=== PATIENT | female | born 1970 | race Caucasian/White ===

== ENCOUNTER 2020-08-11 10:39 | Inpatient (IN) | payer BC, SELFPAY ==
[2020-08-11] VITALS (39 sets, daily range): BP systolic 136–185; BP diastolic 65–105; PULSE 80–105; RESP 16–27; TEMP 36–36.9; O2SAT 95–100; BMI 29.5
--- NOTE | ~2020-08-11 | CT_ITS ---
EXAMINATION: CT abdomen pelvis wo con DATE: 08/11/2020 11:36 INDICATION: Right flank pain TECHNIQUE: Computed tomography (CT) of the abdomen and pelvis was performed without intravenous contr ast. Automated exposure control and iterative reconstruction technique were employed. The dose-length product was 477.92 mGy-cm. COMPARISON: None FINDINGS: There are numerous thin-walled cystic spaces throughout the visualized lower lungs. Heart size is nor mal. No pericardial or pleural effusion. There are numerous small macroscopic fat attenuation nodule scattered throughout the liver the largest measuring up to 10 mm the caudate lobe consistent with hep atic angiomyolipomas. There are few calcified gallstones in the dependent fundus of the gallbladder w hich is dilated with wall thickening and prominent pericholecystic inflammatory stranding consistent with acute cholecystitis. The common bile duct is dilated to 9 mm with obstructing 8 x 6 x 8 mm galls tone at the ampulla. There is also mild intrahepatic biliary ductal dilation. Spleen, pancreas and bi lateral adrenal glands are normal. There are multiple bilateral renal cysts the largest on the left m easuring 3.8 cm in maximal diameter. There are also at least 7 nonobstructing renal stones in each of the left and right kidneys, the largest measuring up to 5 mm lower pole calyx of the right kidney. N o stones seen along the ureters or hydronephrosis. Moderate-sized fat-containing umbilical hernia. Joni wels including the appendix are normal. Bladder, uterus and bilateral adnexa are unremarkable. No jennifer e intraperitoneal gas or fluid. No pathologically enlarged mild thoracolumbar levocurvature. Severe d isc height loss at L5-S1. Otherwise mild thoracolumbar spondylosis. lymphadenopathy. IMPRESSION: 1. 8 mm obstructing gallstone at the distalmost common bile duct with mild intrahepatic and extra hep atic biliary ductal dilation as well as acute cholecystitis. Consider ERCP for stone extraction. 2. Bilateral nonobstructing nephrolithiasis. 3. 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 Reviewed, dictated and finalized at location A. LEAD IMPRESSION: 1. 8 mm obstructing gallstone at the distalmost common bile duct with mild intr ahepatic and extra hepatic biliary ductal dilation as well as acute cholecystit is. Consider ERCP for stone extraction. 2. Bilateral nonobstructing nephrolithiasis. 3. Multiple lung and hepatic lesions most consistent with pulmonary lymphangiom yomatosis and hepatic angiomyolipomatosis the combination of which strongly sug gests association with tuberous sclerosis complex.
--- NOTE | ~2020-08-11 | XR_ITS ---
EXAMINATION: XR ERCP DATE: 08/12/2020 12:18 INDICATION: Choledocholithiasis TECHNIQUE: Three intraoperative fluoroscopic images obtained during endoscopic retrograde cholangiopa ncreatography (ERCP) are submitted for review. Total fluoroscopic time was 49.0 seconds. COMPARISON: None. FINDINGS: The common bile duct is dilated. Final fluoroscopic image demonstrates sweeping of the duct . IMPRESSION: 1. Dilated common bile duct. Please refer to the ERCP procedure note for additional details. Reviewed, dictated and finalized at location A. ER HELPER IMPRESSION: 1. Dilated common bile duct. Please refer to the ERCP procedure note for additi onal details.
--- NOTE | 2020-08-11 11:17 | ED.ABDPAIN ---
HPI - Abdominal Pain General Chief Complaint: Abdominal Pain Stated Complaint: ABD Pain, Nausea, Sent by PCP Time Seen by Provider: 08/11/20 10:55 Source: patient History of Present Illness HPI narrative: 50-year-old female presents to emergency department for umbilical abdominal pain that radiates to her right flank that she noticed last night. Patient states she has had this in the past before, unknown cause. She has not taken anything for the pain far. Nothing makes the pain worse or better. Reports some nausea, no vomiting. Last bowel movement was about 2 days ago. No urinary symptoms. No vaginal bleeding or discharge. No fever or chills. No chest pain or shortness of breath. Related Data Home Medications Medication Instructions Recorded Confirmed L.acidophil-L.plantar-Bifido 7 1 cap PO DAILY 08/11/20 08/11/20 [up4 Probiotics Adult] albuterol 90 mcg INHALATION Q6H PRN 08/11/20 08/11/20 amitriptyline 50 mg PO HS 08/11/20 08/11/20 calcium carbonate-vitamin D3 [All 1 tablet PO DAILY 08/11/20 08/11/20 Day Calcium] cholecalciferol (vitamin D3) 25 mcg PO DAILY 08/11/20 08/11/20 [Vitamin D3] cyanocobalamin (vitamin B-12) 2,500 mcg SUBLINGUAL DAILY 08/11/20 08/11/20 [Vitamin B-12] fluticasone propionate [Flonase] 1 spray INTRANASAL BID 08/11/20 08/11/20 labetalol 200 mg PO Q12H 08/11/20 08/11/20 multivit with min-folic acid 1 tablet PO DAILY 08/11/20 08/11/20 [Adult One Daily Multivitamin] omeprazole [Prilosec] 20 mg PO HS 08/11/20 08/11/20 salmeterol [Serevent] 50 mcg INHALATION BID 08/11/20 08/11/20 topiramate [Topamax] 50 mg PO QAM 08/11/20 08/11/20 topiramate [Topamax] 100 mg PO HS 08/11/20 08/11/20 verapamil 180 mg PO DAILY 08/11/20 08/11/20 Allergies Allergy/AdvReac Type Severity Reaction Status Date / Time iodine Allergy Unknown Swelling Verified 08/11/20 16:23 of Lip/Tongue/Throat Review of Systems Review of Systems: Narrative: CONSTITUTIONAL: Denies fever, chills, or sweats. EYES: Denies visual changes, redness, or discharge. ENT: Denies rhinorrhea, congestion, sore throat, or otalgia. CARDIOVASCULAR: Denies chest pain, palpitations, or edema. RESPIRATORY: Denies cough or dyspnea. GASTROINTESTINAL: Reports umbilical pain that radiates to right flank, also reports nausea GENITOURINARY: Denies dysuria or hematuria. SKIN: Denies rash or itching. MUSCULOSKELETAL: Denies back pain, joint pain, or myalgia. NEUROLOGIC: Denies headache, numbness, dizziness, or weakness. PSYCHIATRIC: Denies anxiety or depression. All systems reviewed & are unremarkable except as noted in HPI and below (ROS) PMFSH Past Medical History Medical History (Updated 08/11/20 @ 19:19 by Luan Barnes MD) Umbilical hernia without obstruction or gangrene Family History Family History Father Hypertension Mother Hypertension Sibling Family history of attention deficit hyperactivity disorder (ADHD) Social History Social History Smoking status: Never smoker Second hand tobacco smoke exposure: No Alcohol intake: never Substance use: never Substance use type: does not use Spiritual care concerns: No Exam Narrative: Exam Narrative: GENERAL: Well-appearing, well-nourished, and in no acute distress. HEAD: Normocephalic, atraumatic. EYES: PERRLA and EOMI. ENT: Nares clear, no rhinorrhea or epistaxis. Mucous membranes moist. NECK: Supple. CHEST: Clear to auscultation. No respiratory distress. HEART: Regular rate and rhythm. No murmur heard. Normal peripheral pulses. ABDOMEN: Right-sided abdominal TTP, and right flank TTP EXTREMITIES: Normal range of motion. No edema. SKIN: Warm, dry, no rash. NEURO: No focal deficits. Alert and oriented x3. PSYCH: Normal mood and affect. Course Consultations Consultation #1: [id number] - discussed case with Dr. Dailey, accepts admission 12:15PM d
[2020-08-11 11:29] LABS: Basophils Absolute Auto 0.1 K/mm3 (0.0-0.1); Basophils Percent Auto 0.3 % (0.2-1.2); Eosinophils Absolute Auto 0.1 K/mm3 (0-0.3); Eosinophils Percent Auto 0.5 % (0-4.4); Hematocrit 40.1 % (37.0-47.0); Hemoglobin 12.9 g/dL (12.0-15.0); Immature Granulocyte Absolute 0.05 K/mm3 (0.00-0.031); Immature Granulocyte Percent A 0.3 % (0-0.5); Lymphocytes Absolute Auto 1.13 K/mm3 (0.9-3.2); Lymphocytes Percent Auto 7.7 % (18.3-44.2); Mean Corpuscular HGB Conc 32.2 g/dl (32-36); Mean Corpuscular Hemoglobin 26.8 pg (26-34); Mean Corpuscular Volume 83.2 fl (80-100); Mean Platelet Volume 10.2 fl (7.4-10.4); Monocytes Absolute Auto 0.9 K/mm3 (0.1-0.6); Neutrophils Absolute Auto 12.4 K/mm3 (1.3-6.7); Neutrophils Percent Auto 85.2 % (45.5-73.1); Platelet Count Result 412 k/mm3 (150-375); Red Blood Count 4.82 M/mm3 (4.2-5.4); Red Cell Distribution Width 18.8 % (11.5-14.5); White Blood Count 14.6 K/mm3 (4.5-10.0)
[2020-08-11] MEDS: ONDANSETRON INJ 4 MG/2 ML VIAL IV PUSH ×3 (11:40→21:44)
[2020-08-11] MEDS: fentaNYL CITRATE INJ (*CRX) 100 MCG/2 ML VIAL 25 MCG IV PUSH (11:40)
[2020-08-11] MEDS: SODIUM CHLORIDE 0.9% IV 1,000 ML 999 ML IV CONT (11:41)
[2020-08-11 11:42] LABS: Ammonia < 9 umol/L (9-30)
[2020-08-11 11:43] LABS: Alanine Aminotransferase 562 U/L (4-35); Albumin Level 4.1 g/dL (3.5-5.1); Alkaline Phosphatase 501 U/L (38-126); Anion Gap 12 mmol/L (8-16); Aspartate Amino Transferase 738 U/L (14-36); Bilirubin,Total 2.1 mg/dL (0.2-1.3); Blood Urea Nitrogen 20 mg/dL (7-17); Calcium 9.7 mg/dL (8.4-10.2); Carbon Dioxide 25 mmol/L (22-30); Chloride 102 mmol/L (98-107); Estimated CRCL calculation 56 ml/min; Estimated Glomerular Filt Rate 52; Glucose 121 mg/dL (65-105); Lipase 38 U/L (23-300); Potassium 4.1 mmol/L (3.4-5.0); Sodium 139 mmol/L (137-145)
[2020-08-11] MEDS: MORPHINE SULFATE (*CRX) 2 MG/ML INJ IV PUSH (12:14)
[2020-08-11 12:35] LABS: INR 0.9; Prothrombin Time 12.3 Seconds (11.1-14.7)
[2020-08-11] MEDS: AMPICILLIN SULB 3 GM/NS 100 ML 3 GM/100 ML VIAL IVPB (12:43)
--- NOTE | 2020-08-11 15:37 | PM.CNGS ---
Assessment and Plan Assessment and plan (1) Gallstone of bile duct with obstruction: Qualifiers: Cholecystitis acuity: acute Cholecystitis presence: with cholecystitis Qualified Code(s): K80.43 - Calculus of bile duct with acute cholecystitis with obstruction Code(s): K80.51 - Calculus of bile duct without cholangitis or cholecystitis with obstruction Status: Acute Assessment and Plan: Will await plan from GI. Probably patient will have ERCP 1st then consider laparoscopic cholecystectomy later. (2) Acute cholecystitis: Code(s): K81.0 - Acute cholecystitis Status: Acute Assessment and Plan: I agree with starting the patient on antibiotics. Will discuss with her the risks, benefits, and possible complications of a laparoscopic cholecystectomy with intraoperative cholangiogram and possible open cholecystectomy in order to remove the source of the gallstones leading to her common duct obstruction. (3) Umbilical hernia without obstruction or gangrene: Code(s): K42.9 - Umbilical hernia without obstruction or gangrene Status: Acute Assessment and Plan: This seems to be reducible. It is nontender for the patient. If we proceed to laparoscopic cholecystectomy will try to make 1 of the incisions here and repair the hernia as we finished. Patient is appreciative of this. History of Present Illness Consult details Consult date: 08/11/20 Reason for consult: gallstones (With cholecystitis and probable choledocholithiasis by CT.) Requesting physician: Joey Dailey MD Narrative: This is a 50-year-old white female who presented to the [place] emergency department today for umbilical abdominal pain that radiates to her right flank that she first noticed last night. Patient states she has had this in the past before, but did not know the cause. Nothing makes the pain worse or better. Reports some nausea, no vomiting. Last bowel movement was about 2 days ago. No urinary symptoms. No vaginal bleeding or discharge. No fever or chills. No chest pain or shortness of breath. Patient states that in June of this year labs done because she is on immune suppressive medication for her Tubersclerous showed that her liver enzymes were up. Therefore that medication was stopped. She was told to go to her PCP for further workup. The past she has not known that she had had gallstones but her PCP told her to come to the emergency room today after a visit in the office in the morning. This apparently from the patient's perspective was because she felt my liver and I did not feel right . Work-up in the emergency room subsequently showed slightly elevated white count along with a CT scan showing both cholelithiasis and choledocholithiasis. All 4 liver function tests were somewhat elevated including a bilirubin of 2.1. Patient is admitted now and GI has been consulted to consider ERCP. Review of Systems Constitutional: Constitutional: Reports as per HPI and Denies headache(s) Eyes: Eyes: Denies loss of vision and Denies eye pain ENT: Reports Normal hearing present, Denies change in voice, Denies dizziness and Denies headache(s) Cardiovascular: Cardiovascular: Denies chest pain and Denies dyspnea Respiratory: Respiratory: Denies dyspnea and Denies wheezing Comments: Patient states she sees a real estate management specialist because of her cystic disease in her lungs.(Tubersclerosis) Gastrointestinal: Gastrointestinal: Reports abdominal pain Musculoskeletal: Musculoskeletal: Denies back pain and Denies arthralgias Neurologic: Reports Normal hearing present, Denies dizziness, Denies headache(s), Denies loss of vision and Denies memory loss Psychiatric: Psychiatric: Denies memory loss and Denies panic attacks Endocrine: Endocrine: Reports no additional endocrine complaints Hematologic/Lymphatic: Hematologic/Lymphatic: Reports no additional hematologic/lymphatic complaints Allergic/Immunologi
--- NOTE | 2020-08-11 16:03 | ADMGEN ---
This patient, Jessa Alves, was admitted to [address] [facility] Surg Room 300-01 on 08/11/2020 @ 1550. Patient/family oriented to hospital policies and general routines including ID bracelet, bed and alarms, visiting hours, pain management, procedures, bathroom and other care routines, personal items, smoking policy, room service/diet, and visiting hours. Information on how to activate the Rapid Response Team has been discussed. Patient/Family are encouraged to report perceived risks to care and to ask questions if they do not understand what they are told or what they should do.
[2020-08-11] MEDS: MORPHINE SULFATE (*CRX) 4 MG/ML INJ 2 MG IV PUSH ×3 (16:19→23:47)
[2020-08-11] MEDS: HYDROmorphone HCL INJ (*CRX) 1 MG/ML SYR 0.5 MG IV PUSH (18:25)
--- NOTE | 2020-08-11 20:30 | PM.IMHP ---
H&P: HPI History of Present Illness Date/Time: 08/11/20 20:30 Chief complaint: Abdominal pain. Narrative: Jessa Alves is a pleasant 50-year-old female with hypertension, hyperlipidemia, chronic kidney disease stage 3, and tuberous sclerosis who presented to the emergency department earlier today via private vehicle for evaluation of abdominal pain. Over the past 1 month or so she has had intermittent pain, mainly in the right upper quadrant, which she describes as a squeezing or cramping sensation with occasional bloating. Her appetite has also been poor and she has been experiencing nausea, typically eating just cereal most days as she can tolerate that without issue. In fact she has lost approximately 20 lb in a little over a month due to the symptoms. She has continued to attribute her pain to ?liver pain? due to her underlying tuberous sclerosis. Interestingly she reports that her liver enzymes were elevated a little over a month ago on routine labs, and her immunosuppressants were stopped at that time. In any event, she sees no pattern as to when this pain occurs but does seem to be worse at nighttime. She denies that is related to food. She has been told not to take Tylenol or NSAIDs and thus she has just been trying to manage with the pain. At this time she rates her pain 9/10, and states it is in the right upper quadrant with some radiation through to the back. She denies fever, chills, sweats, jaundice, pruritus, chest pain, shortness of breath, and vomiting. No known history of gallbladder disease, pancreatitis, or peptic ulcers. Review of Systems Review of Systems: Narrative: Twelve systems were reviewed with pertinent positives and negatives as per HPI. No fever, chills, or sweats. No recent cold or flu-like symptoms. She denies exposure to those positive for COVID-19. No recent travel or sick contacts. Last bowel movement was about 2 days ago, and she reports that it was a bit computer processing scheduler in color with possible mucus. No blood in the stools. Except as documented, all other systems were reviewed and are negative. [facility] Past Medical History Medical History (Updated 08/11/20 @ 23:13 by Ilsa Mccarty PA-C) Chronic kidney disease, stage 3 Endometriosis Hyperlipidemia Hypertension Reflux esophagitis Tuberous sclerosis Umbilical hernia without obstruction or gangrene Surgical History Surgical History (Updated 08/11/20 @ 23:09 by Ilsa Mccarty PA-C) History of section History of laparoscopy History of partial nephrectomy Left partial nephrectomy related to a gross secondary to tuberous sclerosis. History of right salpingo-oophorectomy With adhesiolysis and destruction of endometriosis. History of tonsillectomy Family History Family History (Updated 08/11/20 @ 23:09 by Ilsa Mccarty PA-C) Father Hypertension Mother Hypertension Sibling Family history of attention deficit hyperactivity disorder (ADHD) Son Tuberous sclerosis Social History Social History (Updated 08/11/20 @ 23:10 by Ilsa Mccarty PA-C) Social History: Surrogate decision maker: Pia Blue Code status: Full code. Smoking status: Never smoker Second hand tobacco smoke exposure: No Alcohol intake: never Substance use: never Substance use type: does not use Additional living arrangements comments: Resides in [place] with her 17-year-old twins. Additional occupation/education comments: She works from home, for the [employer] in [place]. Spiritual care concerns: No Meds Home Medications and Allergies Home Medications Medication Instructions Recorded Confirmed Type L.acidophil-L.plantar-Bifido 7 1 cap PO DAILY 08/11/20 08/11/20 History [up4 Probiotics Adult] albuterol 90 mcg INHALATION Q6H PRN 08/11/20 08/11/20 History amitriptyline 50 mg PO HS 08/11/20 08/11/20 History calcium carbonate-vitamin D3 [All 1 tablet PO DAILY 08/11/20 08/11/20 History Day Calcium]
[2020-08-11] MEDS: SODIUM CHLORIDE 0.9% IV 1,000 ML 100 ML IV CONT (23:37)
[2020-08-12] VITALS (17 sets, daily range): BP systolic 96–145; BP diastolic 53–77; PULSE 78–106; RESP 13–20; TEMP 36.7–37.1; O2SAT 93–100
[2020-08-12] MEDS: LABETALOL HCL 100 MG TABLET 200 MG PO ×3 (00:54→20:45)
[2020-08-12] MEDS: AMITRIPTYLINE HCL 25 MG TABLET 50 MG PO ×2 (00:56→20:50)
[2020-08-12] MEDS: PANTOPRAZOLE 40 MG TABLET PO ×2 (00:57→20:45)
[2020-08-12] MEDS: TOPIRAMATE 100 MG TABLET PO ×2 (00:57→20:47)
[2020-08-12 06:28] LABS: Basophils Absolute Auto 0.1 K/mm3 (0.0-0.1); Basophils Percent Auto 0.3 % (0.2-1.2); Eosinophils Absolute Auto 0.1 K/mm3 (0-0.3); Eosinophils Percent Auto 0.6 % (0-4.4); Hematocrit 40.3 % (37.0-47.0); Hemoglobin 12.8 g/dL (12.0-15.0); Immature Granulocyte Absolute 0.11 K/mm3 (0.00-0.031); Immature Granulocyte Percent A 0.6 % (0-0.5); Lymphocytes Absolute Auto 1.08 K/mm3 (0.9-3.2); Lymphocytes Percent Auto 5.6 % (18.3-44.2); Mean Corpuscular HGB Conc 31.8 g/dl (32-36); Mean Corpuscular Hemoglobin 26.8 pg (26-34); Mean Corpuscular Volume 84.3 fl (80-100); Mean Platelet Volume 10.3 fl (7.4-10.4); Monocytes Absolute Auto 1.5 K/mm3 (0.1-0.6); Monocytes Percent Auto 7.9 % (2.6-8.5); Neutrophils Absolute Auto 16.4 K/mm3 (1.3-6.7); Platelet Count Result 436 k/mm3 (150-375); Red Blood Count 4.78 M/mm3 (4.2-5.4); White Blood Count 19.3 K/mm3 (4.5-10.0)
[2020-08-12] MEDS: MORPHINE SULFATE (*CRX) 4 MG/ML INJ 2 MG IV PUSH (06:30)
[2020-08-12] MEDS: ONDANSETRON INJ 4 MG/2 ML VIAL IV PUSH (06:30)
[2020-08-12 06:48] LABS: Alanine Aminotransferase 505 U/L (4-35); Albumin Level 3.6 g/dL (3.5-5.1); Alkaline Phosphatase 548 U/L (38-126); Anion Gap 11 mmol/L (8-16); Aspartate Amino Transferase 382 U/L (14-36); Bilirubin,Total 3.6 mg/dL (0.2-1.3); Blood Urea Nitrogen 13 mg/dL (7-17); Calcium 9.5 mg/dL (8.4-10.2); Carbon Dioxide 23 mmol/L (22-30); Chloride 105 mmol/L (98-107); Estimated CRCL calculation 51 ml/min; Estimated Glomerular Filt Rate 47; Glucose 108 mg/dL (65-105); Lipase 48 U/L (23-300); Sodium 139 mmol/L (137-145)
[2020-08-12] MEDS: FLUTICASONE PROPIONATE 0.05% NA SPR 16 GM BTL (*BKC) 1 SPRAY NASAL ×2 (08:41→16:43)
[2020-08-12] MEDS: LACTATED RINGERS 1,000 ML 150 ML IV CONT (08:45)
[2020-08-12] MEDS: VERAPAMIL HCL 180 MG TABLET ER PO (08:54)
--- NOTE | 2020-08-12 09:03 | PM.PNGS ---
Progress Note: A&P Assessment and Plan (1) Acute cholecystitis: Onset Date: ~08/2020 Code(s): K81.0 - Acute cholecystitis Status: Acute Assessment and Plan: I have discussed with the patient possible laparoscopic cholecystectomy with intraoperative cholangiogram, possible open cholecystectomy. She has been provided with the patient information sheet regarding this procedure. If her ERCP a successful today we will think about proceeding with the procedure for removal of the gallbladder either tomorrow or Monday. Repeat labs will be checked tomorrow morning and the patient could have clear liquids from the surgical point of view between the end of her ERCP and midnight tonight if she is feeling well. I think it is important to consider removal of the gallbladder to remove the source of the stones which have caused her other problem. (2) Gallstone of bile duct with obstruction: Onset Date: Unknown Qualifiers: Cholecystitis acuity: acute Cholecystitis presence: with cholecystitis Qualified Code(s): K80.43 - Calculus of bile duct with acute cholecystitis with obstruction Code(s): K80.51 - Calculus of bile duct without cholangitis or cholecystitis with obstruction Status: Acute Assessment and Plan: We suspected this is a recent occurrence. However she may have had a stone out in the bile duct for as long as a month without causing obstruction since her liver function tests were somewhat elevated back in June. She is planning to proceed with ERCP later today. We will await the results of that test. (3) Umbilical hernia without obstruction or gangrene: Onset Date: Unknown Code(s): K42.9 - Umbilical hernia without obstruction or gangrene Status: Acute Assessment and Plan: Will plan to repair this umbilical hernia on the way out from completing her laparoscopic cholecystectomy. (4) Bilateral nephrolithiasis: Code(s): N20.0 - Calculus of kidney Status: Acute Additional Plan Repeat labs tomorrow morning following her ERCP today. Will try to tentatively schedule patient for laparoscopic scopic cholecystectomy for either 02/2020 or 03/2020. Subjective Subjective Date/Time Seen: 08/12/20 08:03 Patient lying in bed when I entered the room. She is alert and awake and not complain of any specific pain right now. She states she recently received some pain medicine from the nurse. She took some pain medicine periodic Whitney overnight but was able to sleep on off. Her pain is mainly central abdominal radiating to the right back. I explained to her that her bilirubin was elevated further today and that I believe the right thing to do is to proceed with ERCP which she states is scheduled for around 11:00 a.m. today. Review of Systems Constitutional: Constitutional: Reports no additional constitutional complaints ENT: Reports other (Mucous Membranes moist.) Cardiovascular: Cardiovascular: Denies dyspnea Respiratory: Respiratory: Denies pain on inspiration and Denies dyspnea Gastrointestinal: Gastrointestinal: Reports abdominal pain ( Mainly right upper quadrant and mid abdomen), Denies heartburn, Denies diarrhea and Reports nausea ( occasional) Comments: Patient has had an umbilical hernia it has been enlarging slowly over the last 2 years. Genitourinary: Comments: history of 2002 History of laparoscopy for endometriosis and removal of 1 ovary 2012. (May have had an incision by the umbilicus at this time). Musculoskeletal: Musculoskeletal: Reports other (No calf swelling or edema) Integumentary/Breasts: Skin/Breast: Reports system reviewed and no additional complaints, except as docu Exam Const: General: cooperative, no acute distress, alert and awake Orientation/consciousness: patient oriented x3 HENMT: Mouth: Yes moist mucous membranes Neck: Neck: normal visual inspection Chest: [place]
--- NOTE | 2020-08-12 09:12 | WPDGICN ---
Assessment and Plan Assessment and plan (1) Obstructive jaundice: Code(s): K83.1 - Obstruction of bile duct Status: Acute (2) Acute cholecystitis: Code(s): K81.0 - Acute cholecystitis Status: Acute (3) Gallstone of bile duct with obstruction: Qualifiers: Cholecystitis acuity: acute Cholecystitis presence: with cholecystitis Qualified Code(s): K80.43 - Calculus of bile duct with acute cholecystitis with obstruction Code(s): K80.51 - Calculus of bile duct without cholangitis or cholecystitis with obstruction Status: Acute Assessment and Plan: Patient has elevated LFTs and abnormal CT scan suggesting cholelithiasis, cholecystitis and choledocholithiasis. Plan is for broad-spectrum antibiotics which has already been started. Proceed with ERCP today. Surgery is following for anticipated cholecystectomy as well. GI Consult Note Consult date/time: 08/12/20 09:12 HPI: Jessa Alves is a 50 year old female Seen at the request of the hospitalist service. Patient in usual state of health until Monday evening when she began to have epigastric right upper quadrant pain she presented the emergency room yesterday was found to have elevated LFTs. CT scan suggest gallstones cholecystitis and choledocholithiasis. Patient states that in the past she has been on medications for tubular sclerosis. Elevated LFTs were identified several months ago and felt to be on this basis. She denies any prior history of gallstones. Her family history is noncontributory. Patient continues to complain of ongoing pain after discharge is improved with S pain medications however LFTs continue to be elevated. Review of Systems Review of Systems: All systems reviewed & are unremarkable except as noted in HPI and below PMFSH Past Medical History Medical History (Updated 08/11/20 @ 23:13 by Ilsa Mccarty PA-C) Chronic kidney disease, stage 3 Endometriosis Hyperlipidemia Hypertension Reflux esophagitis Tuberous sclerosis Umbilical hernia without obstruction or gangrene Surgical History Surgical History (Updated 08/11/20 @ 23:09 by Ilsa Mccarty PA-C) History of section History of laparoscopy History of partial nephrectomy Left partial nephrectomy related to a gross secondary to tuberous sclerosis. History of right salpingo-oophorectomy With adhesiolysis and destruction of endometriosis. History of tonsillectomy Family History Family History (Updated 08/11/20 @ 23:09 by Ilsa Mccarty PA-C) Father Hypertension Mother Hypertension Sibling Family history of attention deficit hyperactivity disorder (ADHD) Son Tuberous sclerosis Social History Social History (Updated 08/11/20 @ 23:10 by Ilsa Mccarty PA-C) Social History: Surrogate decision maker: Pia Blue Code status: Full code. Smoking status: Never smoker Second hand tobacco smoke exposure: No Alcohol intake: never Substance use: never Substance use type: does not use Additional living arrangements comments: Resides in [place] with her 17-year-old twins. Additional occupation/education comments: She works from home, for the [email or web address] in [place]. Spiritual care concerns: No Meds Home Medications and Allergies Home Medications Medication Instructions Recorded Confirmed Type L.acidophil-L.plantar-Bifido 7 1 cap PO DAILY 08/11/20 08/11/20 History [up4 Probiotics Adult] albuterol 90 mcg INHALATION Q6H PRN 08/11/20 08/11/20 History amitriptyline 50 mg PO HS 08/11/20 08/11/20 History calcium carbonate-vitamin D3 [All 1 tablet PO DAILY 08/11/20 08/11/20 History Day Calcium] cholecalciferol (vitamin D3) 25 mcg PO DAILY 08/11/20 08/11/20 History [Vitamin D3] cyanocobalamin (vitamin B-12) 2,500 mcg SUBLINGUAL DAILY 08/11/20 08/11/20 History [Vitamin B-12] fluticasone propionate [Flonase] 1 spray INTRANASAL BID 08/11/20 08/11/20 Hist
[2020-08-12] MEDS: SALMETEROL XINAFOATE 50 MCG DISKUS 1 PUFF INHALATION ×2 (09:43→20:01)
--- NOTE | 2020-08-12 10:15 | PC.NURSE ---
To GI Lab per w/c, IV locked. Report given to Mica Valencia
--- NOTE | 2020-08-12 10:30 | WPDANESEPPF ---
Anes - Initial Pre Proc Eval Procedure: Operation Date: 08/12/20 11:00 Proposed Procedures p Endoscopic Retro Cholangiopancreatogram - Otto Awad MD Date/Time: 08/12/20 10:30 Surgeon: TRACY Zimmerman Pre Op Diagnosis: Abdominal pain. Patient Data Age: 50 Gender: F Height: 5 ft 5 in Weight: 80.4 kg Last Vital Signs Temp 37.1 C 08/12/20 05:59 Pulse 100 08/12/20 08:55 Resp 18 08/12/20 05:59 BP 145/77 H 08/12/20 05:59 Pulse Ox 96 08/12/20 05:59 Allergies Allergy/AdvReac Type Severity Reaction Status Date / Time iodine Allergy Unknown Swelling Verified 08/12/20 10:30 of Lip/Tongue/Throat Home Medications Medication Instructions Recorded Confirmed Type L.acidophil-L.plantar-Bifido 7 1 cap PO DAILY 08/11/20 08/11/20 History [up4 Probiotics Adult] albuterol 90 mcg INHALATION Q6H PRN 08/11/20 08/11/20 History amitriptyline 50 mg PO HS 08/11/20 08/11/20 History calcium carbonate-vitamin D3 [All 1 tablet PO DAILY 08/11/20 08/11/20 History Day Calcium] cholecalciferol (vitamin D3) 25 mcg PO DAILY 08/11/20 08/11/20 History [Vitamin D3] cyanocobalamin (vitamin B-12) 2,500 mcg SUBLINGUAL DAILY 08/11/20 08/11/20 History [Vitamin B-12] fluticasone propionate [Flonase] 1 spray INTRANASAL BID 08/11/20 08/11/20 History labetalol 200 mg PO Q12H 08/11/20 08/11/20 History multivit with min-folic acid 1 tablet PO DAILY 08/11/20 08/11/20 History [Adult One Daily Multivitamin] omeprazole [Prilosec] 20 mg PO HS 08/11/20 08/11/20 History salmeterol [Serevent] 50 mcg INHALATION BID 08/11/20 08/11/20 History topiramate [Topamax] 50 mg PO QAM 08/11/20 08/11/20 History topiramate [Topamax] 100 mg PO HS 08/11/20 08/11/20 History verapamil 180 mg PO DAILY 08/11/20 08/11/20 History Laboratory Tests 08/11/20 08/11/20 08/11/20 11:23 11:23 11:23 WBC 14.6 K/mm3 H K/mm3 (4.5-10.0) RBC 4.82 M/mm3 M/mm3 (4.2-5.4) Hgb 12.9 g/dL g/dL (12.0-15.0) Hct 40.1 % % (37.0-47.0) MCV 83.2 fl fl (80-100) MCH 26.8 pg pg (26-34) MCHC 32.2 g/dl g/dl (32-36) RDW 18.8 % H % (11.5-14.5) Plt Count 412 k/mm3 H k/mm3 (150-375) MPV 10.2 fl fl (7.4-10.4) Immature Gran % (Auto) 0.3 % % (0-0.5) Neut % (Auto) 85.2 % H % (45.5-73.1) Lymph % (Auto) 7.7 % L % (18.3-44.2) Lewis % (Auto) 6.0 % % (2.6-8.5) Eos % (Auto) 0.5 % % (0-4.4) Baso % (Auto) 0.3 % % (0.2-1.2) Lymph # (Auto) 1.13 K/mm3 K/mm3 (0.9-3.2) Lewis # (Auto) 0.9 K/mm3 H K/mm3 (0.1-0.6) Eos # (Auto) 0.1 K/mm3 K/mm3 (0-0.3) Baso # (Auto) 0.1 K/mm3 K/mm3 (0.0-0.1) Abs Immat Gran (auto) 0.05 K/mm3 H K/mm3 (0.00-0.031) Absolute Neuts (auto) 12.4 K/mm3 H K/mm3 (1.3-6.7) Absolute Nucleated RBC 0.0 K/mm3 K/mm3 (0.0-0.012) Nucleated RBC % 0.0 % % (0.0-0.2) PT INR Sodium 139 mmol/L mmol/L (137-145) Potassium 4.1 mmol/L mmol/L (3.4-5.0) Chloride 102 mmol/L mmol/L (98-107) Carbon Dioxide 25 mmol/L mmol/L (22-30) Anion Gap 12 mmol/L mmol/L (8-16) BUN 20 mg/dL H mg/dL (7-17) Creatinine 1.10 mg/dL H mg/dL (0.7-1.0) Estim Creat Clear Calc 56 ml/min ml/min Estimated GFR 52 L (59 - ) Glucose 121 mg/dL H mg/dL (65-105) Calcium 9.7 mg/dL mg/dL (8.4-10.2) Magnesium Total Bilirubin 2.1 mg/dL H mg/dL (0.2-1.3) AST 738 U/L H U/L (14-36) ALT 562 U/L H U/L (4-35) Alkaline Phosphatase 501 U/L H U/L (38-126) Ammonia < 9 umol/L L umol/L (9-30) Total Protein 8.0 g/dL g/dL (6.3-8.2) Albumin 4.1 g/dL g/dL (3.5-5.1) Lipase 38 U/L U/L (23-300)
--- NOTE | 2020-08-12 13:30 | PC.NURSE ---
Returned from GI Lab. Report received from TONG.
--- NOTE | 2020-08-12 14:01 | PM.IMPN ---
Progress Note: A&P Assessment and Plan (1) Acute cholecystitis: Onset Date: ~08/2020 Code(s): K81.0 - Acute cholecystitis Status: Acute Assessment and Plan: Patient presents with abdominal pain, nausea; CT abdomen shows evidence consistent with cholecystitis with choledocholithiasis. ERCP with sphincterotomy and CBD stone extraction performed by Dr Awad this morning. General surgery also following - appreciate recommendations. Noted Dr Barnes's plan for lap priscilla in the next day or 2. Continue IV antibiotics and supportive care. Clear liquids until lap priscilla. (2) Gallstone of bile duct with obstruction: Onset Date: Unknown Qualifiers: Cholecystitis acuity: acute Cholecystitis presence: with cholecystitis Qualified Code(s): K80.43 - Calculus of bile duct with acute cholecystitis with obstruction Code(s): K80.51 - Calculus of bile duct without cholangitis or cholecystitis with obstruction Status: Acute Assessment and Plan: See above. Trend LFTs and bilirubin. (3) Umbilical hernia without obstruction or gangrene: Onset Date: Unknown Code(s): K42.9 - Umbilical hernia without obstruction or gangrene Status: Acute Assessment and Plan: Noted Dr Barnes's plan for repair during lap priscilla. No acute issues. (4) Chronic kidney disease, stage 3: Qualifiers: Chronic kidney disease stage 3 subtype: unspecified whether 3a or 3b Qualified Code(s): N18.30 - Chronic kidney disease, stage 3 unspecified Code(s): N18.30 - Chronic kidney disease, stage 3 unspecified Status: Chronic Assessment and Plan: Cr 1.2 today. Avoid nephrotoxic agents and monitor renal function. (5) Hypertension: Qualifiers: Hypertension type: essential hypertension Qualified Code(s): I10 - Essential (primary) hypertension Code(s): I10 - Essential (primary) hypertension Status: Chronic Assessment and Plan: Stable. Maintained on her home regimen with labetolol, verapamil. Monitor BP and adjust treatment as needed. 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 Subjective Date/time seen: 08/12/20 1345 Interval history: Ms. Alves is a 50yo F admitted for acute cholecystitis with gallstone obstruction. She is seen in follow up this afternoon after just returning from ERCP. She feels tired and has a sore throat from the scope otherwise offers no complaints. She denies abdominal pain at this time. She was very nauseous this morning prior to ERCP but she describes this has resolved. She denies chest pain or shortness of breath. Review of Systems Review of Systems: All systems reviewed & are unremarkable except as noted in HPI and below Exam Narrative: Exam Narrative: General: Female resting sitting up in bed in no acute distress. HEENT: Normocephalic, EOMI, oral mucosa tacky. Cardiovascular: Rate and rhythm are regular. Respiratory: Lungs clear to auscultation all garcia. Non-labored breathing. Abdomen: Soft, non-distended, bowel sounds present, mild RUQ tenderness to palpation without guarding. Extremities: Peripheral pulses intact. No edema. Neuro: No focal neurological deficits. Speech is clear. Objective Data Vital Signs Vital Signs: Last Vital Signs Temp 98.0 F 08/12/20 12:19 Pulse 85 08/12/20 13:19 Resp 19 08/12/20 13:19 BP 115/62 08/12/20 13:19 Pulse Ox 96 08/12/20 13:19 Intake/Output Intake/Output: Intake & Output 08/09/20
[2020-08-12] MEDS: THERAPEUTIC MULTIVITAMINS/MINERALS TAB (*BKC) 1 TABLET PO (14:15)
[2020-08-12] MEDS: CHOLECALCIFEROL 1,000 UNITS TABLET 1000 UNITS PO (14:15)
[2020-08-12] MEDS: CYANOCOBALAMIN 500 MCG TABLET 2500 MCG BY MOUTH (14:15)
[2020-08-12] MEDS: TOPIRAMATE 25 MG TABLET 50 MG PO (14:15)
[2020-08-12] MEDS: PHENOL/SOD PHENO SPRAY CHERRY (*BKC) 1 SPRAY MUCOUS MEM ×2 (16:43→20:50)
[2020-08-12] MEDS: SACCHAROMYCES BOULARDII 250 MG CAPSULE PO (16:43)
[2020-08-12 18:09] LABS: Add Urine Microscopic? YES; Appearance Urine Clear (Clear); Bacteria Urine Trace /hpf; Bilirubin Urine Negative (Negative); Blood Urine 1+ (Negative); Color Urine Amber (Yellow); Glucose Urine UA Negative (Negative); Ketones Urine Trace mg/dL (Negative); Leukocyte Esterase Ur 2+ LEU/UL (Negative); Mucus Urine Rare /lpf; Nitrate Urine Negative (Negative); Protein Urine 1+ mg/dL (Negative); Specific Grav Ur 1.014 (1.001-1.035); Squamous Epithelial Cell Urine Many /hpf (Few); WBC Urine 21-30 /hpf
[2020-08-13] VITALS (14 sets, daily range): BP systolic 104–146; BP diastolic 54–77; PULSE 76–92; RESP 10–20; TEMP 35.8–36.9; O2SAT 93–98
[2020-08-13 06:45] LABS: Basophils Percent Auto 0.1 % (0.2-1.2); Hematocrit 34.4 % (37.0-47.0); Hemoglobin 10.9 g/dL (12.0-15.0); Immature Granulocyte Absolute 0.06 K/mm3 (0.00-0.031); Immature Granulocyte Percent A 0.5 % (0-0.5); Lymphocytes Absolute Auto 1.27 K/mm3 (0.9-3.2); Lymphocytes Percent Auto 10.8 % (18.3-44.2); Mean Corpuscular HGB Conc 31.7 g/dl (32-36); Mean Corpuscular Volume 81.9 fl (80-100); Mean Platelet Volume 10.3 fl (7.4-10.4); Monocytes Absolute Auto 0.7 K/mm3 (0.1-0.6); Neutrophils Absolute Auto 9.7 K/mm3 (1.3-6.7); Neutrophils Percent Auto 82.6 % (45.5-73.1); Platelet Count Result 383 k/mm3 (150-375); Red Cell Distribution Width 18.9 % (11.5-14.5); White Blood Count 11.8 K/mm3 (4.5-10.0)
[2020-08-13 06:55] LABS: INR 1.1; Prothrombin Time 14.3 Seconds (11.1-14.7)
[2020-08-13 07:21] LABS: Alanine Aminotransferase 314 U/L (4-35); Albumin Level 3.1 g/dL (3.5-5.1); Alkaline Phosphatase 466 U/L (38-126); Anion Gap 8 mmol/L (8-16); Aspartate Amino Transferase 134 U/L (14-36); Bilirubin,Total 2.1 mg/dL (0.2-1.3); Blood Urea Nitrogen 18 mg/dL (7-17); Calcium 9.2 mg/dL (8.4-10.2); Carbon Dioxide 25 mmol/L (22-30); Chloride 106 mmol/L (98-107); Estimated CRCL calculation 56 ml/min; Estimated Glomerular Filt Rate 52; Glucose 101 mg/dL (65-105); Lipase 23 U/L (23-300); Magnesium 2.1 mg/dL (1.6-2.3); Potassium 3.5 mmol/L (3.4-5.0); Sodium 139 mmol/L (137-145)
--- NOTE | 2020-08-13 07:56 | WPDANESPN ---
Anes - Prog Note Post-Op Date/Time: 08/13/20 07:56 Cardiovascular status: normal Respiratory status: normal Airway patency: baseline Mental status: baseline Post-Op hydration status: normal Vital Signs: Last Vital Signs Temp 36.3 C L 08/13/20 06:00 Pulse 79 08/13/20 06:00 Resp 20 08/13/20 06:00 BP 146/74 H 08/13/20 06:00 Pulse Ox 98 08/13/20 06:00 Pain Score (VAS): 10/18 I/O: Intake & Output 08/12/20 08/12/20 08/13/20 15:59 23:59 07:59 Intake Total 150 120 0 Output Total 0 1000 Balance 150 120 -1000 Laboratory Tests 08/13/20 05:35 08/13/20 05:35 08/12/20 08/13/20 08/13/20 17:53 05:35 05:35 WBC 11.8 H RBC 4.20 Hgb 10.9 L Hct 34.4 L MCV 81.9 MCH 26.0 MCHC 31.7 L RDW 18.9 H Plt Count 383 H MPV 10.3 Immature Gran % (Auto) 0.5 Neut % (Auto) 82.6 H Lymph % (Auto) 10.8 L [place] % (Auto) 6.0 Eos % (Auto) 0.0 Baso % (Auto) 0.1 L Lymph # (Auto) 1.27 [place] # (Auto) 0.7 H Eos # (Auto) 0.0 Baso # (Auto) 0.0 Abs Immat Gran (auto) 0.06 H Absolute Neuts (auto) 9.7 H Absolute Nucleated RBC 0.0 Nucleated RBC % 0.0 PT 14.3 INR 1.1 APTT 35.0 Sodium Potassium Chloride Carbon Dioxide Anion Gap BUN Creatinine Estim Creat Clear Calc Estimated GFR Glucose Calcium Magnesium Total Bilirubin AST ALT Alkaline Phosphatase Total Protein Albumin Lipase Urine Color Yuly Urine Appearance Clear Urine pH 6.0 Ur Specific Tropic 1.014 Urine Protein 1+ H Urine Glucose (UA) Negative Urine Ketones Trace Ur Blood (Man) 1+ H Urine Nitrate Negative Urine Bilirubin Negative Urine Urobilinogen 4.0 H Leukocyte Esterase Rfl 2+ H Urine RBC 11-20 H Urine WBC 21-30 H Ur Squamous Epith Cells Many H Urine Bacteria Trace Urine Mucus Rare 08/13/20 05:35 WBC RBC Hgb Hct MCV MCH MCHC RDW Plt Count MPV Immature Gran % (Auto) Neut % (Auto) Lymph % (Auto) [place] % (Auto) Eos % (Auto) Baso % (Auto) Lymph # (Auto) [place] # (Auto) Eos # (Auto) Baso # (Auto) Abs Immat Gran (auto) Absolute Neuts (auto) Absolute Nucleated RBC Nucleated RBC % PT INR APTT Sodium 139 Potassium 3.5 Chloride 106 Carbon Dioxide 25 Anion Gap 8 BUN 18 H Creatinine 1.10 H Estim Creat Clear Calc 56 Estimated GFR 52 L Glucose 101 Calcium 9.2 Magnesium 2.1 Total Bilirubin 2.1 H AST 134 H ALT 314 H Alkaline Phosphatase 466 H Total Protein 7.0 Albumin 3.1 L Lipase 23 Urine Color Urine Appearance Urine pH Ur Specific [place]ropic Urine Protein Urine Glucose (UA) Urine Ketones Ur Blood (Man) Urine Nitrate Urine Bilirubin Urine Urobilinogen Leukocyte Esterase Rfl Urine RBC Urine WBC Ur Squamous Epith Cells Urine Bacteria Urine Mucus Post-procedural complaints: none Patient Feedback: Patient satisfied with anesthetic care.
--- NOTE | 2020-08-13 08:11 | WPDHPUPDATE1 ---
History and Physical Update Update Date/Time: 08/13/20 08:11 History and Physical has been reviewed, including an updated exam of the patient. There are changes in the patient's condition.She has had a successful ERCP with stone extraction. Her liver function tests from proving on the labs this morning. Apparently she had symptoms of a UTI and urine cultures pending. The patient is on cefotetan and q.12 hours. Risks, benefits, and alternatives Of a laparoscopic cholecystectomy with possible intraoperative cholangiogram possible open cholecystectomy and repair of an umbilical hernia with sutures have been discussed and questions answered. Patient agrees to proceed with procedure.
--- NOTE | 2020-08-13 08:14 | WPDGIPROGNO ---
Progress Note: A&P Additional Plan Patient much more comfortable this morning. Denies abdominal pain. Physical exam reveals her to be anicteric. Abdomen bowel sounds are present soft with no localized tenderness. Labs reveal total bilirubin 2.1, AST 134, ALT 314, alk-phos 466, all are declining. Impression 1. Choledocholithiasis. Status post ERCP sphincterotomy and stone extraction. 2. Cholecystitis with cholelithiasis. Surgical therapy anticipated today. Plan to continue monitor LFTs till resolution. Subjective Date/time seen: 08/13/20 08:14 Objective Data Vital Signs Vital Signs: Vital Signs - 24 hr 08/12/20 08:55 08/12/20 09:44 08/12/20 10:32 Temperature 98.2 F Pulse Rate 100 91 94 Respiratory Rate 16 18 Blood Pressure 118/53 L Pulse Oximetry 95 97 08/12/20 12:19 08/12/20 12:29 08/12/20 12:39 Temperature 98.0 F Pulse Rate 84 84 87 Respiratory Rate 14 13 16 Blood Pressure 101/56 L 96/54 L 105/61 Pulse Oximetry 100 100 99 08/12/20 12:49 08/12/20 12:59 08/12/20 13:09 Temperature Pulse Rate 88 85 84 Respiratory Rate 16 15 15 Blood Pressure 110/56 L 112/57 L 114/57 L Pulse Oximetry 98 97 96 08/12/20 13:19 08/12/20 14:00 08/12/20 20:00 Temperature 98.0 F Pulse Rate 85 84 82 Respiratory Rate 19 16 20 Blood Pressure 115/62 111/64 Pulse Oximetry 96 93 96 08/12/20 20:01 08/12/20 20:45 08/12/20 22:00 Temperature 98.0 F Pulse Rate 96 78 82 Respiratory Rate 20 20 Blood Pressure 116/59 L Pulse Oximetry 96 08/13/20 06:00 Temperature 97.4 F L Pulse Rate 79 Respiratory Rate 20 Blood Pressure 146/74 H Pulse Oximetry 98 Intake/Output Intake/Output: Intake & Output 08/10/20 08/11/20 08/12/20 08/13/20 23:59 23:59 23:59 23:59 Intake Total 1150 290 0 Output Total 0 800 1000 Balance 1150 -510 -1000 Meds/Results Medications: Active Medications Generic Name Dose Route Start Last Admin Trade Name Freq PRN Reason Stop Dose Admin Acetaminophen 1,000 mg 08/13/20 14:00 Acetaminophen 500 Mg Tablet PO 08/13/20 14:01 ONCE ONE Albuterol 2 puff 08/11/20 23:00 Albuterol Sulfate (*Sp) Aerosol 1 Puff INHALATION Q6H PRN Wheezing Amitriptyline HCl 50 mg 08/11/20 23:55 08/12/20 20:50 Amitriptyline Hcl 25 Mg Tablet PO 50 mg HS SUYAPA Administration Calcium Carbonate 500 mg 08/12/20 09:00 08/12/20 14:14 Calcium/Vitamin D 500 Mg Tablet PO 500 mg QAM SUYAPA Administration Cyanocobalamin 2,500 mcg 08/12/20 09:00 08/12/20 14:15 Cyanocobalamin 500 Mcg Tablet BY MOUTH 2,500 mcg DAILY SUYAPA Administration Fluticasone Propionate 1 spray 08/12/20 09:00 08/12/20 16:43 Fluticasone Propionate 0.05% Na Spr 16 Gm Btl (*Bkc) NASAL 1 spray BID SUYAPA Administration Cefotetan Disodium 1 gm/ 50 mls @ 100 mls/hr 08/11/20 21:00 08/12/20 21:44 Dextrose IVPB 100 mls/hr Q12HR SUYAPA Infusion Ketorolac Tromethamine 15 mg 08/13/20 14:00 Ketorolac 15 Mg/Ml Vial (*Bkc) IV PUSH 08/13/20 14:01 ONCE ONE Labetalol HCl 200 mg 08/11/20 23:00 08/12/20 20:45 Labetalol Hcl 100 Mg Tablet PO 200 mg Q12HR SUYAPA Administration Morphine Sulfate 2 mg 08/11/20 12:20 08/12/20 06:30 Morphine Sulfate (*Crx) 4 Mg/Ml Inj IV PUSH 2 mg Q2H PRN Administration Pain Rated 7-10 Multivitamins/Calcium 1 tablet 08/12/20 09:00 08/12/20 14:15 Therapeutic Multivitamins/Minerals Tab (*Bkc) PO 1 tablet DAILY SUYAPA Administration Ondansetron HCl 4 mg 08/11/20 18:11 08/12/20 06:30 Ondansetron Inj 4 Mg/2 Ml Vial IV PUSH 4 mg Q6H PRN Administration Nausea And Vomiting Pantoprazole Sodium 40 mg 08/11/20 23:55 08/12/20 20:45 Pantoprazole 40 Mg Tablet PO 40 mg HS SUYAPA Administration Phenol 1 spray 08/12/20 13:56 08/12/20 20:50 Phenol/Sod Pheno [place] (*Bkc) MUCOUS MEM 1 spray PRN PRN Administration Sore Throat Saccharomyces Boulardii 250 mg 08/12/20 1
[2020-08-13] MEDS: CHLORHEXIDINE GLUCONATE 4% SOL 120 ML BTL 1 APPLIC TOPICAL (08:34)
[2020-08-13] MEDS: VERAPAMIL HCL 180 MG TABLET ER PO (08:34)
[2020-08-13] MEDS: SALMETEROL XINAFOATE 50 MCG DISKUS 1 PUFF INHALATION ×2 (09:53→21:00)
[2020-08-13] MEDS: CYANOCOBALAMIN 500 MCG TABLET 2500 MCG BY MOUTH (10:03)
[2020-08-13] MEDS: LABETALOL HCL 100 MG TABLET 200 MG PO ×2 (10:03→20:05)
[2020-08-13] MEDS: FLUTICASONE PROPIONATE 0.05% NA SPR 16 GM BTL (*BKC) 1 SPRAY NASAL ×2 (10:04→18:56)
[2020-08-13] MEDS: THERAPEUTIC MULTIVITAMINS/MINERALS TAB (*BKC) 1 TABLET PO (10:04)
[2020-08-13] MEDS: CHOLECALCIFEROL 1,000 UNITS TABLET 1000 UNITS PO (10:05)
[2020-08-13] MEDS: SACCHAROMYCES BOULARDII 250 MG CAPSULE PO ×2 (10:06→18:56)
[2020-08-13] MEDS: TOPIRAMATE 25 MG TABLET 50 MG PO (10:07)
--- NOTE | 2020-08-13 10:35 | PM.IMPN ---
Progress Note: A&P Assessment and Plan (1) Acute cholecystitis: Onset Date: ~08/2020 Code(s): K81.0 - Acute cholecystitis Status: Acute Assessment and Plan: Patient presents with abdominal pain, nausea; CT abdomen shows evidence consistent with cholecystitis with choledocholithiasis. Appreciate GI and general surgery recommendations. ERCP with sphincterotomy and CBD stone extraction performed by Dr Awad 08/12. Plan is for lap priscilla with IOC with Dr Barnes this afternoon. Continue IV antibiotics (Cefotetan day 3) and supportive care for now. (2) Gallstone of bile duct with obstruction: Onset Date: Unknown Qualifiers: Cholecystitis acuity: acute Cholecystitis presence: with cholecystitis Qualified Code(s): K80.43 - Calculus of bile duct with acute cholecystitis with obstruction Code(s): K80.51 - Calculus of bile duct without cholangitis or cholecystitis with obstruction Status: Acute Assessment and Plan: See above. Trend LFTs and bilirubin, improving. (3) Umbilical hernia without obstruction or gangrene: Onset Date: Unknown Code(s): K42.9 - Umbilical hernia without obstruction or gangrene Status: Acute Assessment and Plan: Noted Dr Barnes's plan for repair during lap priscilla. No acute issues. (4) Chronic kidney disease, stage 3: Qualifiers: Chronic kidney disease stage 3 subtype: unspecified whether 3a or 3b Qualified Code(s): N18.30 - Chronic kidney disease, stage 3 unspecified Code(s): N18.30 - Chronic kidney disease, stage 3 unspecified Status: Chronic Assessment and Plan: Cr 1.1 today, stable. Avoid nephrotoxic agents and monitor renal function. (5) Hypertension: Qualifiers: Hypertension type: essential hypertension Qualified Code(s): I10 - Essential (primary) hypertension Code(s): I10 - Essential (primary) hypertension Status: Chronic Assessment and Plan: BPs reviewed and have been variable, last 146/74. Maintained on her home regimen with labetolol, verapamil. Monitor BP and adjust treatment as needed. 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 Subjective Date/time seen: 08/13/20 0945 Interval history: Ms. Alves is a 50yo F admitted for acute cholecystitis with gallstone obstruction. She is feeling improved since having ERCP yesterday and reports no abdominal pain this morning. She denies nausea and vomiting. She denies chest pain or shortness of breath. Review of Systems Review of Systems: All systems reviewed & are unremarkable except as noted in HPI and below Exam Narrative: Exam Narrative: General: Female resting sitting up in bed in no acute distress. HEENT: Normocephalic, EOMI, oral mucosa tacky. Cardiovascular: Rate and rhythm are regular. Respiratory: Lungs clear to auscultation all garcia. Non-labored breathing. Abdomen: Soft, non-distended, bowel sounds present, RUQ tenderness to palpation without guarding but improved. Extremities: Peripheral pulses intact. No edema. Neuro: No focal neurological deficits. Speech is clear. Objective Data Vital Signs Vital Signs: Last Vital Signs Temp 97.4 F L 08/13/20 06:00 Pulse 79 08/13/20 06:00 Resp 20 08/13/20 06:00 BP 146/74 H 08/13/20 06:00 Pulse Ox 98 08/13/20 06:00 Intake/Output Intake/Output: Intake & Output 08/10/20 08/11/20 08/12/20 08/13/20 23:59 23:59 23:59 23:59 Intake Total 1150 340 0 Output Total 0 800 1000
[2020-08-13] MEDS: LACTATED RINGERS 1,000 ML 30 ML IV CONT ×3 (10:41→16:41)
--- NOTE | 2020-08-13 12:50 | PCDIET ---
Nutrition Follow-Up Complete: Inadequate oral intake related to reduced appetite due to pain as evidence by unplanned wt loss Diet advancement with PO intake of 75% or greater of meals to halt further unplanned wt loss Goal: Goal not met. Continue goal. Pt current nutrition is NPO. Nutrition recommendation: agree Last recorded weight is 80.4 kg, recommend updated wt Bowel Motility: na Labs Reviewed:WBC 11.8, Hgb 10.9, Hct 34.4, BUN 18, Cr 1.10, AST 134, ALT 314 Meds Noted: Vit D, Albuterol, B12, LR, MTV, Florastor, Protonix, Zofran Additional Notes: Pt s/p ERCP & stone extraction. Plans for cholecystectomy today. One intake of clears at 25%. Edu provided today on f/u diet after surgery. Recommend ADAT to low fat. We will continue to follow every five days for appropriate diet, adequate intake, and wt.
--- NOTE | 2020-08-13 13:04 | P.PNAN_ITS ---
Anes - Eval Final PreProcedure Day of Procedure 08/13/20 13:04 Patient weight: obese Heart: regular rate and rhythm Lungs: clear to auscultation Airway: Mallampati scale class III Neurological: alert and oriented Last oral intake: >/= 8 hours ASA classification: III Emergent: no Anesthetic plan: proceed Anesthesia type and monitoring: general ETT and standard monitoring Informed Consent: The patient's anesthetic plan and its attendant risks and b enefits were discussed with the patient/family/POA. Questions were solicited and answers provided to the satisfaction of the patient/family/POA.
[2020-08-13] MEDS: ACETAMINOPHEN 500 MG TABLET 1000 MG PO (13:30)
[2020-08-13] MEDS: KETOROLAC 15 MG/ML VIAL (*BKC) IV PUSH (13:31)
[2020-08-13] MEDS: BUPIVACAINE/EPINEPHRINE 0.25% 50 ML VIAL INFILTRATE (14:02)
--- NOTE | 2020-08-13 16:29 | SUR.OPER ---
DR KC INFORMED UNABLE TO GIVE UPDATE INFORMATION/MESSAGE MAILBOX FULL. MULTIPLE ATTEMPS.
--- NOTE | 2020-08-13 16:48 | PM.PROC ---
Procedure Note - Detailed Date of procedure: 08/13/20 Pre-op diagnosis: Abdominal pain. Acute Cholecystitis with Cholelithiasis Medium-sized umbilical hernia Post-op diagnosis: same Procedure performed: Laparoscopic Cholecystectomy Repair of umbilical hernia Description of procedure: Patient was seen preoperatively in the holding area and risks, benefits and alternatives confirmed. Also confirmed that she was okay with me repairing her umbilical hernia since we be going right through that area to obtain our access to the abdomen. Patient was taken to the operating room and general anesthesia was induced. A time out was then preformed with the surgery team confirming patient and site of surgery. The abdomen was prepped and draped in the usual sterile fashion. The smile shaped curvilinear incision was made just below the umbilicus overlying her fairly generous 4 x 3 cm umbilical hernia with an 15 blade knife. I then carefully dissected the umbilical skin off the underlying hernia sac lifting it cephalad and then the skin inferior to the incision was also lifted away from the hernia sac. There was a approximately 4 x 3 cm x 4 cm deep hernia sac which was completely excised during this process. There was omentum up in the hernia and this was reduced into the abdomen. The circular fascial defect was about 2.5-3 cm wide. I placed 2 stay sutures of O- Vicryl on either side of the mid-line fascia beneath the umbilicus Either side of the umbilical defect noted above and was then able to slide in the Redd cannula through the fascial defect into the peritoneum. First under low flow and then under high flow the abdomen was insufflated with carbon dioxide never exceeding a pressure of 14. Three trocars were then introduced under direct vision. The following trocars were introduced under direct vision: a 12 mm in the epigastrium and two 5 mm trocars along the right costal margin laterally in the subcostal area. There was significant omental adhesions to the underside of the gallbladder. The gallbladder had omentum on it and then the omentum and that tip top of the gallbladder omn the most anterior side was actually densely adhered to the underside of the anterior abdominal wall. The 1st step was to take this down with Bovie cautery on a right angle cautery instrument. We got a very small hole in the gallbladder and little bit of bile drained out of this as we did that. I pushed on the gallbladder and we suctioned away any bile came out and then grabbed the gallbladder at its upper end at this site with 1 of the graspers from the most lateral port site. Following this I did a meticulous dissection for more than an hour to carefully take down the very dense fibrosis that was between the gallbladder wall from intermediate down the gallbladder down to the triangle of Chalot. These were taken down with blunt and sharp dissection using some Bovie cautery for hemostasis. We were able to dissect this completely away from the neck of the gallbladder. I then carefully used the L-shaped cautery and the 10 mm right angle dissector to dissect out the triangle of [place]ot. I then was able to dissect out both the cystic duct and cystic artery and identify a window of safety abpve them toward the liver. The gall bladder was grasped and the cystic duct and artery were dissected free and clipped with an 10 mm endo-clip fruit inspector. The cystic duct and artery were clipped with use of 2 clips on the patient's side 1 on the gallbladder side utilizing a 10 mm endoclip-fruit inspector. The cystic duct was then transected. The cystic artery was also transected at this point. The gall bladder was then removed using electrocautery and then removed from the abdomen using an endobag . We had no trouble extracted the gallbladder through the umbilical hernia site. The trocars were removed visualizing hemostasis and the remaining gas evacuated. At the umbilicus, because of her umbilical hernia I used
[2020-08-13] MEDS: HYDROcodone/acetaminophen (*CRX) 5-325 MG TABLET 1 TAB PO (18:15)
[2020-08-13 18:29] LABS: Alanine Aminotransferase 303 U/L (4-35); Albumin Level 3.6 g/dL (3.5-5.1); Alkaline Phosphatase 467 U/L (38-126); Aspartate Amino Transferase 150 U/L (14-36); Bilirubin,Total 1.4 mg/dL (0.2-1.3)
[2020-08-13] MEDS: AMITRIPTYLINE HCL 25 MG TABLET 50 MG PO (20:04)
[2020-08-13] MEDS: TOPIRAMATE 100 MG TABLET PO (20:05)
[2020-08-13] MEDS: SENNA/DOCUSATE SODIUM TABLET 2 TAB PO (20:05)
[2020-08-13] MEDS: PANTOPRAZOLE 40 MG TABLET PO (20:06)
[2020-08-13] MEDS: HYDROcodone/acetaminophen (*CRX) 7.5-325 MG TABLET 1 TAB PO (22:18)
[2020-08-14] MEDS: HYDROcodone/acetaminophen (*CRX) 7.5-325 MG TABLET 1 TAB PO ×3 (03:01→15:05)
[2020-08-14 03:17] VITALS: BP 126/80; PULSE 84; RESP 20; TEMP 36.7; O2SAT 95
[2020-08-14 06:20] VITALS: O2SAT 92
[2020-08-14 06:29] LABS: Basophils Absolute Auto 0.1 K/mm3 (0.0-0.1); Basophils Percent Auto 0.4 % (0.2-1.2); Eosinophils Percent Auto 0.1 % (0-4.4); Hematocrit 37.6 % (37.0-47.0); Hemoglobin 11.9 g/dL (12.0-15.0); Immature Granulocyte Absolute 0.07 K/mm3 (0.00-0.031); Immature Granulocyte Percent A 0.4 % (0-0.5); Lymphocytes Absolute Auto 1.72 K/mm3 (0.9-3.2); Lymphocytes Percent Auto 9.7 % (18.3-44.2); Mean Corpuscular HGB Conc 31.6 g/dl (32-36); Mean Corpuscular Hemoglobin 26.8 pg (26-34); Mean Corpuscular Volume 84.7 fl (80-100); Mean Platelet Volume 10.2 fl (7.4-10.4); Monocytes Absolute Auto 0.9 K/mm3 (0.1-0.6); Monocytes Percent Auto 4.9 % (2.6-8.5); Neutrophils Percent Auto 84.5 % (45.5-73.1); Platelet Count Result 399 k/mm3 (150-375); Red Blood Count 4.44 M/mm3 (4.2-5.4); Red Cell Distribution Width 19.2 % (11.5-14.5); White Blood Count 17.8 K/mm3 (4.5-10.0)
[2020-08-14 06:40] LABS: Alanine Aminotransferase 241 U/L (4-35); Albumin Level 3.2 g/dL (3.5-5.1); Alkaline Phosphatase 411 U/L (38-126); Anion Gap 8 mmol/L (8-16); Aspartate Amino Transferase 93 U/L (14-36); Bilirubin,Total 1.1 mg/dL (0.2-1.3); Blood Urea Nitrogen 21 mg/dL (7-17); Carbon Dioxide 27 mmol/L (22-30); Chloride 104 mmol/L (98-107); Estimated CRCL calculation 51 ml/min; Estimated Glomerular Filt Rate 47; Glucose 97 mg/dL (65-105); Magnesium 2.2 mg/dL (1.6-2.3); Potassium 3.7 mmol/L (3.4-5.0); Sodium 139 mmol/L (137-145)
[2020-08-14] MEDS: ALBUTEROL SULFATE (*SP) AEROSOL 1 PUFF 2 PUFF INHALATION (06:41)
[2020-08-14] MEDS: SALMETEROL XINAFOATE 50 MCG DISKUS 1 PUFF INHALATION (07:03)
[2020-08-14 07:58] VITALS: PULSE 84; RESP 20; O2SAT 92
[2020-08-14 08:00] VITALS: BP 125/81; PULSE 80; RESP 18; TEMP 36.8; O2SAT 93
--- NOTE | 2020-08-14 08:17 | WPDANESPN ---
Anes - Prog Note Post-Op Date/Time: 08/14/20 08:17 Cardiovascular status: normal Respiratory status: normal Airway patency: baseline Mental status: baseline Post-Op hydration status: normal Vital Signs: Last Vital Signs Temp 36.7 C 08/14/20 03:17 Pulse 84 08/14/20 07:58 Resp 20 08/14/20 07:58 BP 126/80 08/14/20 03:17 Pulse Ox 92 08/14/20 07:58 Pain Score (VAS): 0/10 I/O: Intake & Output 08/13/20 08/14/20 08/14/20 23:59 07:59 15:59 Intake Total 100 450 Output Total 120 900 Balance -20 -450 Laboratory Tests 08/14/20 05:58 08/14/20 05:58 08/13/20 08/13/20 08/14/20 05:35 18:09 05:58 WBC 17.8 H RBC 4.44 Hgb 11.9 L Hct 37.6 MCV 84.7 MCH 26.8 MCHC 31.6 L RDW 19.2 H Plt Count 399 H MPV 10.2 Immature Gran % (Auto) 0.4 Neut % (Auto) 84.5 H Lymph % (Auto) 9.7 L [place] % (Auto) 4.9 Eos % (Auto) 0.1 Baso % (Auto) 0.4 Lymph # (Auto) 1.72 [place] # (Auto) 0.9 H Eos # (Auto) 0.0 Baso # (Auto) 0.1 Abs Immat Gran (auto) 0.07 H Absolute Neuts (auto) 15.0 H Absolute Nucleated RBC 0.0 Nucleated RBC % 0.0 Sodium Potassium Chloride Carbon Dioxide Anion Gap BUN Creatinine Estim Creat Clear Calc Estimated GFR Glucose Calcium Magnesium Total Bilirubin 1.4 H Direct Bilirubin 0.0 AST 150 H ALT 303 H Alkaline Phosphatase 467 H Total Protein 7.0 Albumin 3.6 Blood Type O Positive Antibody Screen Negative 08/14/20 05:58 WBC RBC Hgb Hct MCV MCH MCHC RDW Plt Count MPV Immature Gran % (Auto) Neut % (Auto) Lymph % (Auto) [place] % (Auto) Eos % (Auto) Baso % (Auto) Lymph # (Auto) [place] # (Auto) Eos # (Auto) Baso # (Auto) Abs Immat Gran (auto) Absolute Neuts (auto) Absolute Nucleated RBC Nucleated RBC % Sodium 139 Potassium 3.7 Chloride 104 Carbon Dioxide 27 Anion Gap 8 BUN 21 H Creatinine 1.20 H Estim Creat Clear Calc 51 Estimated GFR 47 L Glucose 97 Calcium 9.0 Magnesium 2.2 Total Bilirubin 1.1 Direct Bilirubin AST 93 H ALT 241 H Alkaline Phosphatase 411 H Total Protein 7.0 Albumin 3.2 L Blood Type Antibody Screen Microbiology 08/12/20 17:53 Urine Clean Catch Urine Culture - Final Post-procedural complaints: none Patient Feedback: Patient satisfied with anesthetic care.
[2020-08-14] MEDS: FLUTICASONE PROPIONATE 0.05% NA SPR 16 GM BTL (*BKC) 1 SPRAY NASAL (08:24)
[2020-08-14] MEDS: CHOLECALCIFEROL 1,000 UNITS TABLET 1000 UNITS PO (08:25)
[2020-08-14] MEDS: CYANOCOBALAMIN 500 MCG TABLET 2500 MCG BY MOUTH (08:25)
[2020-08-14] MEDS: THERAPEUTIC MULTIVITAMINS/MINERALS TAB (*BKC) 1 TABLET PO (08:26)
[2020-08-14] MEDS: VERAPAMIL HCL 180 MG TABLET ER PO (08:26)
[2020-08-14] MEDS: SACCHAROMYCES BOULARDII 250 MG CAPSULE PO (08:26)
[2020-08-14] MEDS: LABETALOL HCL 100 MG TABLET 200 MG PO (08:26)
[2020-08-14] MEDS: TOPIRAMATE 25 MG TABLET 50 MG PO (08:27)
--- NOTE | 2020-08-14 09:59 | WPDGIPROGNO ---
Progress Note: A&P Additional Plan Patient alert and comfortable this morning. Tolerating liquids. Denies any ongoing abdominal pain. Perhaps some mild incisional tenderness. Physical exam reveals abdomen to be soft incision identified. Labs reveal WBC 17.8, hemoglobin 11.9. LFTs improving. Impression 1. Cholecystitis. Now status post cholecystectomy. 2. Choledocholithiasis status post ERCP and clearance of the common bile duct. 3. Ventral hernia repair. Plan as per surgery. Continue monitor LFTs till results of resolution. Follow-up LFTs after discharge advised. Subjective Date/time seen: 08/14/20 09:59 Objective Data Vital Signs Vital Signs: Vital Signs - 24 hr 08/13/20 12:58 08/13/20 16:41 08/13/20 16:55 Temperature 97.1 F L 98.4 F Pulse Rate 81 83 84 Respiratory Rate 18 10 L 16 Blood Pressure 124/56 L 111/58 L 104/54 L Pulse Oximetry 98 96 96 08/13/20 17:00 08/13/20 17:10 08/13/20 17:25 Temperature Pulse Rate 87 76 Respiratory Rate 16 12 Blood Pressure 121/70 126/69 Pulse Oximetry 94 94 93 08/13/20 17:32 08/13/20 17:47 08/13/20 18:17 Temperature 96.5 F L 96.7 F L 97.3 F L Pulse Rate 76 86 92 Respiratory Rate 16 16 18 Blood Pressure 129/65 144/77 H 138/65 Pulse Oximetry 94 96 95 08/13/20 19:17 08/13/20 20:05 08/13/20 23:17 Temperature 98.1 F 98.1 F Pulse Rate 83 88 86 Respiratory Rate 20 20 Blood Pressure 135/74 128/74 Pulse Oximetry 93 94 08/14/20 03:17 08/14/20 06:20 08/14/20 07:58 Temperature 98.1 F Pulse Rate 84 84 Respiratory Rate 20 20 Blood Pressure 126/80 Pulse Oximetry 95 92 92 Intake/Output Intake/Output: Intake & Output 08/11/20 08/12/20 08/13/20 08/14/20 23:59 23:59 23:59 23:59 Intake Total 1150 340 150 450 Output Total 0 800 1120 900 Balance 1150 -460 -970 -450 Meds/Results Medications: Active Medications Generic Name Dose Route Start Last Admin Trade Name Freq PRN Reason Stop Dose Admin Acetaminophen 500 mg 08/13/20 17:32 Acetaminophen 500 Mg Tablet PO Q6H PRN Mild Pain (1-3) or Fever Hydrocodone Bitart/Acetaminophen 1 tab 08/13/20 17:32 08/13/20 18:15 Hydrocodone/Acetaminophen (*Crx) 5-325 Mg Tablet PO 1 tab Q4H PRN Administration Pain Rated 4-6 Hydrocodone Bitart/Acetaminophen 1 tab 08/13/20 17:32 08/14/20 08:28 Hydrocodone/Acetaminophen (*Crx) 7.5-325 Mg Tablet PO 1 tab Q4H PRN Administration Pain Rated 7-10 Albuterol 2 puff 08/11/20 23:00 08/14/20 06:41 Albuterol Sulfate (*Sp) Aerosol 1 Puff INHALATION 2 puff Q6H PRN Administration Wheezing Amitriptyline HCl 50 mg 08/11/20 23:55 08/13/20 20:04 Amitriptyline Hcl 25 Mg Tablet PO 50 mg HS SUYAPA Administration Calcium Carbonate 500 mg 08/12/20 09:00 08/14/20 08:24 Calcium/Vitamin D 500 Mg Tablet PO 500 mg QAM SUYAPA Administration Cyanocobalamin 2,500 mcg 08/12/20 09:00 08/14/20 08:25 Cyanocobalamin 500 Mcg Tablet BY MOUTH 2,500 mcg DAILY SUYAPA Administration Diphenhydramine HCl 25 mg 08/13/20 17:32 Diphenhydramine Hcl Inj 50 Mg/Ml Vial IV PUSH Q6H PRN Itching Fluticasone Propionate 1 spray 08/12/20 09:00 08/14/20 08:24 Fluticasone Propionate 0.05% Na Spr 16 Gm Btl (*Bkc) NASAL 1 spray BID SUYAPA Administration Labetalol HCl 200 mg 08/11/20 23:00 08/14/20 08:26 Labetalol Hcl 100 Mg Tablet PO 200 mg Q12HR SUYAPA Administration Levofloxacin 750 mg 08/14/20 09:00 Levofloxacin Tab 750 Mg Tablet PO DAILY SUYAPA Multivitamins/Calcium 1 tablet 08/12/20 09:00 08/14/20 08:26 Therapeutic Multivitamins/Minerals Tab (*Bkc) PO 1 tablet DAILY SUYAPA Administration Pantoprazole Sodium 40 mg 08/11/20 23:55 08/13/20 20:06 Pantoprazole 40 Mg Tablet PO 40 mg HS SUYAPA Administration Phenol 1 spray 08/12/20 13:56 08/12/20 20:50 Phenol/Sod Pheno [place] (*Bkc) MUCOUS MEM 1 spray PRN PRN Administration So
--- NOTE | 2020-08-14 10:02 | PM.PNGS ---
Progress Note: A&P Assessment and Plan (1) Acute cholecystitis: Onset Date: ~08/2020 Code(s): K81.0 - Acute cholecystitis Status: Acute Assessment and Plan: Doing well postop day 1. I have discussed with her the typical postop course and we have discussed medications for the next week. She will follow up with me in the office in 2 weeks. She will follow low-fat diet provided to her previously for 1 week and then she can try few things on the side not recommended the week prior to see me in the office. She knows she can call the office with any questions through the next 2 weeks. I do not believe that she needs any more antibiotics at home related to the gallbladder or gallbladder surgery. (2) Umbilical hernia without obstruction or gangrene: Onset Date: Unknown Code(s): K42.9 - Umbilical hernia without obstruction or gangrene Status: Acute Assessment and Plan: This was repaired at the time of surgery with permanent sutures in a transverse manner. 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 Patient sees a toolmaker helper regarding rer cystic changes in the lungs, but we had no problems getting her through a general anesthesia yesterday. (4) Hypertension: Qualifiers: Hypertension type: essential hypertension Qualified Code(s): I10 - Essential (primary) hypertension Code(s): I10 - Essential (primary) hypertension Status: Chronic (5) Bilateral nephrolithiasis: Onset Date: ~07/2020 Code(s): N20.0 - Calculus of kidney Status: Acute Assessment and Plan: The patient did not know that she had these. I did discuss them with her briefly today and she knows that she has small kidney stones on both sides and what the typical symptoms of a kidney stone passing would be like. (6) Chronic kidney disease, stage 3: Qualifiers: Chronic kidney disease stage 3 subtype: unspecified whether 3a or 3b Qualified Code(s): N18.30 - Chronic kidney disease, stage 3 unspecified Code(s): N18.30 - Chronic kidney disease, stage 3 unspecified Status: Chronic Additional Plan Follow-up in the office in 2 weeks Home on [place] to take 1-1/2 every 6 hours today and then try to cut back to just 1 every 6 hours the following day. Tomorrow she could start taking 600 mg of ibuprofen once resected hours to try to help reduce her narcotic need. No need for further antibiotics after the Levaquin dose I gave her today here. (With regard to the surgical gallbladder/ common bile duct stone situation ). Subjective Subjective Date/Time Seen: 08/14/20 10:02 Post Op day: 1 (Feeling well postop day 1) Patient reports: feels better, tolerating liquids well and flatus Interval history: patient is sitting on the side of the bed when I entered the room. She is about to have breakfast. She will be trying a full liquid breakfast. I informed that her liver function tests were even further improved today. We also discussed the findings at surgery including a very inflamed densely fibrotic gallbladder. I discussed with her I was unable to do the cholangiogram to finally clear the duct but it appeared that the duct was obstructed so I doubt that there are any gallstones out in her bile duct now. Specially with liver function tests improving. She expressed an interest in going home today. Review of Systems Constitutional: Constitutional: Reports no additional constitutional complaints ENT: Reports other (Mucous Membranes moist.) Cardiovascular: Cardiovascular: Denies dyspnea Respiratory: Respiratory: Denies pain on inspiration and Denies dyspnea Gastrointestinal: Gastrointestinal: Reports as per HPI and Reports abdominal pain ( Mild to moderate mostly at the umbilicus.) Comments: She is using ice at the bigger inci
--- NOTE | 2020-08-14 13:23 | PM.DS ---
DS: Admitting Diagnosis Admitting Diagnosis Admitting Diagnosis: Abdominal pain. DS: Discharge Diagnosis Discharge Diagnosis (1) Acute cholecystitis: Onset Date: ~08/2020 Code(s): K81.0 - Acute cholecystitis Status: Acute Assessment and Plan: Date of Admission 08/11/20 Date of Discharge/DOS 08/14/20 Ms. Alves is a pleasant 50yo F with history of hypertension, chronic kidney disease, and tuberous sclerosis who presented to the ED for evaluation of abdominal pain and nausea. CT abdomen/pelvis demonstrated findings consistent with cholecystitis with choledocholithiasis. She was evaluated by general surgery, Dr Barnes, and gastroentereology, Dr Awad. She underwent ERCP with sphincterectomy and stone extraction by Dr Awad 08/12/20, then underwent laparoscopic cholecystectomy with intraoperative cholangiogram by Dr Barnes the following day on 08/13/20 without immediate complications. Following these procedures she was monitored while her diet was gradually advanced. She was empirically treated with 4 days of IV antibiotics (cephalosporin). Her symptoms were much improved, she was tolerating a low-fat diet without abdominal pain and she was hemodynamically stable for discharge on 08/14/20 with plans to follow up with PCP and Dr Barnes. Patient presents with abdominal pain, nausea; CT abdomen shows evidence consistent with cholecystitis with choledocholithiasis. Appreciate GI and general surgery recommendations. ERCP with sphincterotomy and CBD stone extraction performed by Dr Awad 08/12. Underwent lap priscilla with IOC with Dr Barnes 08/13. (2) Gallstone of bile duct with obstruction: Onset Date: Unknown Qualifiers: Cholecystitis acuity: acute Cholecystitis presence: with cholecystitis Qualified Code(s): K80.43 - Calculus of bile duct with acute cholecystitis with obstruction Code(s): K80.51 - Calculus of bile duct without cholangitis or cholecystitis with obstruction Status: Acute Assessment and Plan: See above. LFTs and bilirubin were elevated and improved through admission. (3) Umbilical hernia without obstruction or gangrene: Onset Date: Unknown Code(s): K42.9 - Umbilical hernia without obstruction or gangrene Status: Acute Assessment and Plan: Dr Barnes repaired an uncomplicated umbilical hernia during lap priscilla. No acute issues. (4) Chronic kidney disease, stage 3: Qualifiers: Chronic kidney disease stage 3 subtype: unspecified whether 3a or 3b Qualified Code(s): N18.30 - Chronic kidney disease, stage 3 unspecified Code(s): N18.30 - Chronic kidney disease, stage 3 unspecified Status: Chronic Assessment and Plan: Renal function stable. (5) Hypertension: Qualifiers: Hypertension type: essential hypertension Qualified Code(s): I10 - Essential (primary) hypertension Code(s): I10 - Essential (primary) hypertension Status: Chronic Assessment and Plan: BPs were variable (suspect associated with pain) but stable. Maintained on her home regimen with labetolol, verapamil. 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 DS: Summary Time Spent with Patient Time attestation: Total time spent providing and/or coordinating discharge services: 35 mintues Exam Narrative: Exam Narrative: General: Female resting sitting up in bed in no acute distress. HEENT: Normocephalic, E
[2020-08-14 14:00] VITALS: BP 116/61; PULSE 92; RESP 18; TEMP 35.9; O2SAT 97
== END 2020-08-14 16:35 | disposition home or self-care (01) | DRG 418 ==
LOC: ANHED 13:53 → ANH3MEDSUR 15:05
PROVIDERS: Internal Medicine Gastroenterology; Surgery; Admitting Provider Internal Medicine; Emergency Provider Emergency Medicine; Visit Provider Physician Assistant
PROC: 0FC98ZZ Extirpation of Matter from Common Bile Duct, Via Natural or Artificial Opening Endoscopic (ICD-10-PCS; CPT 43260; principal; 2020-08-12 11:00)
PROC: 0FT44ZZ Resection of Gallbladder, Percutaneous Endoscopic Approach (ICD-10-PCS; CPT 47562; principal; 2020-08-13 14:00)
DX: K80.43 Calculus of bile duct with acute cholecystitis with obstruction (principal); Q85.1 Tuberous sclerosis; K82.8 Other specified diseases of gallbladder; K42.9 Umbilical hernia without obstruction or gangrene; K31.9 Disease of stomach and duodenum, unspecified; I12.9 Hypertensive chronic kidney disease with stage 1 through stage 4 chronic kidney disease, or unspecified chronic kidney disease; N18.30 Chronic kidney disease, stage 3 unspecified; N20.0 Calculus of kidney; E78.5 Hyperlipidemia, unspecified; K21.00 Gastro-esophageal reflux disease with esophagitis, without bleeding; Z79.899 Other long term (current) drug therapy
CPT/HCPCS: 36415; 74176; 74329; 80053; 80076; 81001; 82140; 83690; 83735; 85025; 85610; 85730; 86850; 86900; 86901; 87086; 87088; 88302; 88304; 94640; 96361; 96374; 96375; 99285; A9270; C1713; J0295; J1100; J1170; J1885; J2250; J2270; J2405; J2704; J2710; J3010; J7030; J7120; Q9966

== ENCOUNTER 2021-03-12 15:07 | Emergency (ER) | payer BC, SELFPAY ==
--- NOTE | 2021-03-12 15:10 | ED.URI ---
HPI - URI/Sore Throat General Chief Complaint: Upper Respiratory Infection Stated Complaint: Sinus, eyes Time Seen by Provider: 03/12/21 15:20 Source: patient and RN notes reviewed Mode of arrival: ambulatory Limitations: no limitations History of Present Illness HPI Narrative: 51-year-old female presents to the [facility] with complaints of cough at night, bilateral ear pain, nasal drainage, sinus pain and sore throat since Monday, 2 days. Has been using her Leah and Flonase daily and states is not completely helping. Right ear is worse than the left. Denies fevers, nausea, vomiting, diarrhea. No abdominal pain or chest pain. MD elicited complaint: cough, sore throat, rhinorrhea, nasal congestion and sinus pain Related Data Home Medications Medication Instructions Recorded Confirmed Adult One Daily Multivitamin 1 tablet PO DAILY 08/11/20 03/12/21 amitriptyline 50 mg PO HS 08/11/20 03/12/21 calcium carbonate-vitamin D3 1 tablet PO DAILY 08/11/20 03/12/21 cholecalciferol (vitamin D3) 25 mcg PO DAILY 08/11/20 03/12/21 [Vitamin D3] cyanocobalamin (vitamin B-12) 2,500 mcg SUBLINGUAL DAILY 08/11/20 03/12/21 [Vitamin B-12] fluticasone propionate 1 spray INTRANASAL BID 08/11/20 03/12/21 labetalol 200 mg PO Q12H 08/11/20 03/12/21 omeprazole 20 mg PO HS 08/11/20 03/12/21 salmeterol 50 mcg INHALATION BID 08/11/20 03/12/21 topiramate [Topamax] 50 mg PO QAM 08/11/20 03/12/21 topiramate [Topamax] 100 mg PO HS 08/11/20 03/12/21 verapamil 180 mg PO DAILY 08/11/20 03/12/21 albuterol sulfate [Ventolin HFA] 90 mcg INHALATION PRN PRN 03/12/21 03/12/21 sirolimus 1 mg PO BID 03/12/21 03/12/21 Allergies Allergy/AdvReac Type Severity Reaction Status Date / Time iodine Allergy Severe Swelling Verified 03/12/21 15:09 of Lip/Tongue/Throat Review of Systems Review of Systems: All systems reviewed & are unremarkable except as noted in HPI and below Constitutional: Constitutional: Reports as per HPI and Reports chills Eyes: Eyes: Reports no additional eye complaints ENT: Reports as per HPI, Reports nasal congestion and Reports sore throat Cardiovascular: Cardiovascular: Reports no additional cardiovascular complaints and Denies chest pain Respiratory: Respiratory: Reports as per HPI, Denies chest congestion, Reports cough, Denies dyspnea and Denies wheezing Gastrointestinal: Gastrointestinal: Reports no additional gastrointestinal complaints, Denies abdominal pain, Denies diarrhea, Denies nausea and Denies vomiting Musculoskeletal: Musculoskeletal: Reports no additional musculoskeletal complaints, Denies back pain and Denies muscle cramps Integumentary/Breasts: Skin/Breast: Reports system reviewed and no additional complaints, except as docu and Denies rash Neurologic: Reports system reviewed and no additional complaints, except as documented Psychiatric: Psychiatric: Reports no additional psychiatric complaints PMFSH Past Medical History Medical History Bilateral nephrolithiasis (~07/2020) Chronic kidney disease, stage 3 Endometriosis Hyperlipidemia Hypertension Lymphangioleiomyomatosis Reflux esophagitis Tuberous sclerosis (Unknown) Umbilical hernia without obstruction or gangrene (Unknown) Surgical History Surgical History History of section History of laparoscopy History of partial nephrectomy Left partial nephrectomy related to a gross secondary to tuberous sclerosis. History of right salpingo-oophorectomy With adhesiolysis and destruction of endometriosis. History of tonsillectomy Hx laparoscopic cholecystectomy Family History Family History Father Hypertension Mother Hypertension Sibling Family history of attention deficit hyperactivity disorder (ADHD) Son Tuberous sclerosis Social History Social History (Reviewed 03/12/21 @ 15:11 by
[2021-03-12 15:17] VITALS: BP 128/78; PULSE 92; RESP 18; TEMP 37; O2SAT 99
== END 2021-03-12 15:51 | disposition home or self-care (01) ==
PROVIDERS: Emergency Provider Nurse Practitioner; PCP Internal Medicine
DX: J02.0 Streptococcal pharyngitis (principal); H61.21 Impacted cerumen, right ear; I12.9 Hypertensive chronic kidney disease with stage 1 through stage 4 chronic kidney disease, or unspecified chronic kidney disease; N18.30 Chronic kidney disease, stage 3 unspecified; N80.9 Endometriosis, unspecified; E78.5 Hyperlipidemia, unspecified
CPT/HCPCS: 69209; 87880; 99213; G0463

== ENCOUNTER 2021-03-30 16:02 | Emergency (ER) | payer BC, SELFPAY ==
--- NOTE | 2021-03-30 16:08 | ED.URI ---
HPI - URI/Sore Throat General Chief Complaint: Upper Respiratory Infection Stated Complaint: sore throat Time Seen by Provider: 03/30/21 16:08 Source: patient and RN notes reviewed History of Present Illness HPI Narrative: Patient is a 51-year-old female who presents the urgent care with complaints of a sore throat. Patient states she has had the sore throat for approximately 2 weeks and has been on amoxicillin, last dose taken on 22 March. Patient states that her sore throat has been persistent and she has been using cough drops. Denies of any known fevers, nausea, vomiting, headache or other upper respiratory symptoms. Patient states that she wants to make sure her strep is gone . No other acute complaints. No acute distress noted. Patient aware of the plan of care. Some parts of this dictation were generated by voice recognition software and may contain typographical and/or grammatical inaccuracies. Related Data Home Medications Medication Instructions Recorded Confirmed Adult One Daily Multivitamin 1 tablet PO DAILY 08/11/20 03/30/21 amitriptyline 25 mg PO HS 08/11/20 03/30/21 cholecalciferol (vitamin D3) 25 mcg PO DAILY 08/11/20 03/30/21 [Vitamin D3] cyanocobalamin (vitamin B-12) 2,500 mcg SUBLINGUAL DAILY 08/11/20 03/30/21 [Vitamin B-12] labetalol 200 mg PO Q12H 08/11/20 03/30/21 omeprazole 20 mg PO HS 08/11/20 03/30/21 topiramate [Topamax] 50 mg PO QAM 08/11/20 03/30/21 verapamil 180 mg PO DAILY 08/11/20 03/30/21 sirolimus 1 mg PO BID 03/12/21 03/30/21 Allergies Allergy/AdvReac Type Severity Reaction Status Date / Time iodine Allergy Severe Swelling Verified 03/12/21 15:09 of Lip/Tongue/Throat Review of Systems Review of Systems: Narrative: CONSTITUTIONAL: Denies fever, chills, or sweats. EYES: Denies visual changes, redness, or discharge. ENT: Denies rhinorrhea, congestion, or otalgia. Reports of a sore throat CARDIOVASCULAR: Denies chest pain, palpitations, or edema. RESPIRATORY: Denies cough or dyspnea. GASTROINTESTINAL: Denies abdominal pain, nausea, vomiting, or diarrhea. GENITOURINARY: Denies dysuria or hematuria. SKIN: Denies rash or itching. MUSCULOSKELETAL: Denies back pain, joint pain, or myalgia. NEUROLOGIC: Denies headache, numbness, or weakness. All other systems reviewed are negative, except as documented in HPI. [facility] Past Medical History Medical History Bilateral nephrolithiasis (~07/2020) Chronic kidney disease, stage 3 Endometriosis Hyperlipidemia Hypertension Lymphangioleiomyomatosis Reflux esophagitis Tuberous sclerosis (Unknown) Umbilical hernia without obstruction or gangrene (Unknown) Surgical History Surgical History History of section History of laparoscopy History of partial nephrectomy Left partial nephrectomy related to a gross secondary to tuberous sclerosis. History of right salpingo-oophorectomy With adhesiolysis and destruction of endometriosis. History of tonsillectomy Hx laparoscopic cholecystectomy Family History Family History Father Hypertension Mother Hypertension Sibling Family history of attention deficit hyperactivity disorder (ADHD) Son Tuberous sclerosis Social History Social History Social History: Surrogate decision maker: Pia Blue Code status: Full code. Smoking status: Never smoker Second hand tobacco smoke exposure: No Alcohol intake: never Substance use: never Substance use type: does not use Additional living arrangements comments: Resides in [place] with her 17-year-old twins. Additional occupation/education comments: She works from home, for the [employer] in [place]. Gender identity (if verbalized by the patient): Female Spiritual care concerns: No Comments At the t
[2021-03-30 16:10] VITALS: BP 124/78; PULSE 87; RESP 18; TEMP 37.8; O2SAT 98
== END 2021-03-30 16:24 | disposition home or self-care (01) ==
PROVIDERS: Emergency Provider Nurse Practitioner Family; PCP Internal Medicine
DX: J02.9 Acute pharyngitis, unspecified (principal); I12.9 Hypertensive chronic kidney disease with stage 1 through stage 4 chronic kidney disease, or unspecified chronic kidney disease; N18.30 Chronic kidney disease, stage 3 unspecified; E78.5 Hyperlipidemia, unspecified; N80.9 Endometriosis, unspecified; K21.00 Gastro-esophageal reflux disease with esophagitis, without bleeding; Z90.5 Acquired absence of kidney
CPT/HCPCS: 87081; 87880; 99213; G0463

== ENCOUNTER 2022-11-25 17:50 | Emergency (ER) | payer BC, SELFPAY ==
[2022-11-25 18:10] VITALS: BP 162/71; PULSE 110; RESP 20; TEMP 37.7; O2SAT 100
--- NOTE | 2022-11-25 18:36 | ED.URI ---
HPI - URI/Sore Throat General Chief Complaint: Upper Respiratory Infection Stated Complaint: cough, sore throat, chills, fever Time Seen by Provider: 11/25/22 18:36 Source: patient, RN notes reviewed and old records reviewed Mode of arrival: ambulatory Limitations: no limitations History of Present Illness HPI Narrative: 52-year-old female presents to the [facility] with complaints of 3 weeks of cough, sore throat, chills and fever. Reports fevers high as 101 today. Related Data Home Medications Medication Instructions Recorded Confirmed amitriptyline 25 mg tablet 25 mg PO HS 08/11/20 11/25/22 cholecalciferol (vitamin D3) 25 25 mcg PO DAILY 08/11/20 11/25/22 mcg (1,000 unit) capsule (Vitamin D3) cyanocobalamin (vitamin B-12) 2,500 mcg sublingual DAILY 08/11/20 11/25/22 2,500 mcg sublingual tablet (Vitamin B-12) labetalol 200 mg tablet 200 mg PO Q12H 08/11/20 11/25/22 topiramate 50 mg tablet (Topamax) 50 mg PO QAM 08/11/20 11/25/22 sirolimus 1 mg tablet 1 mg PO BID 03/12/21 11/25/22 Allergies Allergy/AdvReac Type Severity Reaction Status Date / Time iodine Allergy Severe Swelling Verified 11/25/22 18:41 of Lip/Tongue/Throat Review of Systems Review of Systems: All systems reviewed & are unremarkable except as noted in HPI and below Constitutional: Constitutional: Reports no additional constitutional complaints Eyes: Eyes: Reports no additional eye complaints ENT: Reports as per HPI and Reports sore throat Cardiovascular: Cardiovascular: Reports no additional cardiovascular complaints, Denies chest pain and Denies dyspnea Respiratory: Respiratory: Reports as per HPI, Denies chest congestion, Reports cough and Denies dyspnea Gastrointestinal: Gastrointestinal: Reports no additional gastrointestinal complaints, Denies abdominal pain, Denies nausea and Denies vomiting Musculoskeletal: Musculoskeletal: Reports no additional musculoskeletal complaints Integumentary/Breasts: Skin/Breast: Reports system reviewed and no additional complaints, except as docu Neurologic: Reports system reviewed and no additional complaints, except as documented Psychiatric: Psychiatric: Reports no additional psychiatric complaints Allergic/Immunologic: Allergic/Immunologic: Reports no additional allergic/immunologic complaints PMFSH Past Medical History Medical History Bilateral nephrolithiasis (~07/2020) Chronic kidney disease, stage 3 Endometriosis Hyperlipidemia Hypertension Lymphangioleiomyomatosis Reflux esophagitis Tuberous sclerosis (Unknown) Umbilical hernia without obstruction or gangrene (Unknown) Surgical History Surgical History History of section History of laparoscopy History of partial nephrectomy Left partial nephrectomy related to a gross secondary to tuberous sclerosis. History of right salpingo-oophorectomy With adhesiolysis and destruction of endometriosis. History of tonsillectomy Hx laparoscopic cholecystectomy Family History Family History Father Hypertension Mother Hypertension Sibling Family history of attention deficit hyperactivity disorder (ADHD) Son Tuberous sclerosis Social History Social History Social History: Surrogate decision maker: Pia Blue Code status: Full code. Smoking status: Never smoker Second hand tobacco smoke exposure: No Alcohol intake: never Substance use: never Substance use type: does not use Additional living arrangements comments: Resides in [place] with her 17-year-old twins. Additional occupation/education comments: She works from home, for the [employer] in [place]. Gender identity (if verbalized by the patient): Female Spiritual care concerns: No Comments At the time
== END 2022-11-25 19:00 | disposition home or self-care (01) ==
PROVIDERS: Emergency Provider Nurse Practitioner; PCP Internal Medicine
DX: J21.9 Acute bronchiolitis, unspecified (principal); R09.82 Postnasal drip; I12.9 Hypertensive chronic kidney disease with stage 1 through stage 4 chronic kidney disease, or unspecified chronic kidney disease; N18.30 Chronic kidney disease, stage 3 unspecified
CPT/HCPCS: 99213; G0463

== ENCOUNTER 2023-06-10 11:59 | Emergency (ER) | payer BC, SELFPAY ==
[2023-06-10 12:58] VITALS: BP 156/74; PULSE 118; RESP 18; TEMP 37.7; O2SAT 96
--- NOTE | 2023-06-10 13:23 | ED.URI ---
HPI - URI/Sore Throat General Chief Complaint: Upper Respiratory Infection Stated Complaint: fever,sorethroat Time Seen by Provider: 06/10/23 13:15 Source: patient and RN notes reviewed Mode of arrival: ambulatory Limitations: no limitations History of Present Illness HPI Narrative: Patient presents today complaining of sore throat, chills, body aches, nausea, rhinorrhea cough mild cough, and fever up to 101.6 since last night. Denies known sick contacts, but does work around the public closely. She currently rates her pain 05/18 and has been taking Tylenol. Related Data Home Medications Medication Instructions Recorded Confirmed amitriptyline 25 mg tablet 25 mg PO HS 08/11/20 06/10/23 labetalol 200 mg tablet 200 mg PO Q12H 08/11/20 06/10/23 topiramate 50 mg tablet (Topamax) 50 mg PO QAM 08/11/20 06/10/23 sirolimus 1 mg tablet 1 mg PO BID 03/12/21 06/10/23 Allergies Allergy/AdvReac Type Severity Reaction Status Date / Time iodine Allergy Severe Swelling Verified 06/10/23 13:28 of Lip/Tongue/Throat Review of Systems Review of Systems: CONSTITUTIONAL: Denies sweats.+ body aches, fever, chills EYES: Denies visual changes, redness, or discharge. ENT: Denies congestion, otalgia.+ rhinorrhea, sore throat CARDIOVASCULAR: Denies chest pain, palpitations, or edema. RESPIRATORY: Denies dyspnea.+ mild cough GASTROINTESTINAL: Denies abdominal pain, vomiting, or diarrhea.+ nausea GENITOURINARY: Denies dysuria or hematuria. SKIN: Denies rash, itching, or wounds. MUSCULOSKELETAL: Denies back pain, joint pain, or myalgia. NEUROLOGIC: Denies headache, numbness, tingling, or weakness. PSYCH: Denies depression or anxiety. COUNTS INCLUDE 234 BEDS AT THE [facility] Past Medical History Medical History Bilateral nephrolithiasis (~07/2020) Chronic kidney disease, stage 3 Endometriosis Hyperlipidemia Hypertension Lymphangioleiomyomatosis Reflux esophagitis Tuberous sclerosis (Unknown) Umbilical hernia without obstruction or gangrene (Unknown) Surgical History Surgical History History of section History of laparoscopy History of partial nephrectomy Left partial nephrectomy related to a gross secondary to tuberous sclerosis. History of right salpingo-oophorectomy With adhesiolysis and destruction of endometriosis. History of tonsillectomy Hx laparoscopic cholecystectomy Family History Family History Father Hypertension Mother Hypertension Sibling Family history of attention deficit hyperactivity disorder (ADHD) Son Tuberous sclerosis Social History Social History Social History: Surrogate decision maker: Pia Blue Code status: Full code. Smoking status: Never smoker Second hand tobacco smoke exposure: No Alcohol intake: never Substance use: never Substance use type: does not use Additional living arrangements comments: Resides in [place] with her 17-year-old twins. Additional occupation/education comments: She works from home, for the [employer] in [place]. Gender identity (if verbalized by the patient): Female Spiritual care concerns: No Comments At time of signature, I have reviewed and agree with nursing past medical, surgical, social and family history unless otherwise noted. Please see nursing chart for further information. There is no relevant family history pertinent to the presenting complaint Exam Narrative: GENERAL: Mildly ill-appearing, well-nourished, and in no acute distress. HEAD: Normocephalic, atraumatic. EYES: EOMI. No redness or drainage. Conjunctivae normal. ENT: Mucous membranes pink and moist. Nares clear. No rhinorrhea. TMs normal bilaterally. Throat mildly erythematous without edema or exudate. Uvula midline. NECK
== END 2023-06-10 14:00 | disposition home or self-care (01) ==
PROVIDERS: Emergency Provider Nurse Practitioner; PCP Internal Medicine
DX: U07.1 COVID-19 (principal); I12.9 Hypertensive chronic kidney disease with stage 1 through stage 4 chronic kidney disease, or unspecified chronic kidney disease; N18.30 Chronic kidney disease, stage 3 unspecified; N80.9 Endometriosis, unspecified; E78.5 Hyperlipidemia, unspecified
CPT/HCPCS: 87081; 87426; 87804; 87880; 99213; C9803; G0463

== ENCOUNTER 2025-04-07 15:18 | Emergency (ER) | payer OTHER, BC, SELFPAY ==
--- NOTE | ~2025-04-07 | XR_ITS ---
EXAM: XR wrist RT min 3V DATE: 04/07/2025 15:45 HISTORY: fall, pain . COMPARISON: None available. FINDINGS: Osteopenia. No fracture or dislocation. No lytic or blastic lesion. Uncomplicated screw an d plate fixation of the distal radius and ulna. Mild scattered degenerative changes. No erosion or pe riosteal change. Soft tissues within normal limits. IMPRESSION: No acute osseous finding in the right wrist. Reviewed, dictated and finalized at location K.
--- OUTSIDE RECORDS SUMMARY | 2025-04-07 15:23 | XMS_ITS | Encounter Summary ---
Author Organization [facility] Address [address] [place] [address] Phone Care Team Providers Care Adjunct Latin Professor Name Role Phone Gonzalez Do MD Primary Care Provider + Gonzalez Do MD Primary Care Provider + Gonzalez Do MD Unavailable Chucho Banerjee MD Unavailable [phone] Mo Olson MD Unavailable [phone] Chadd Morton MD Unavailable [phone] Lance Boyce MD Unavailable Cristina Mehta MD Unavailable Roxy Garcia MD Unavailable Bud Soto NP Unavailable Zoran Calvillo MD Unavailable Dashawn Santillan MD Unavailable Sanjuana Joel MD Unavailable [phone] Patricia Maldonado RN Unavailable Unavailabl e Encounter Details Date Type Department Care Team (Latest Contact Info) Description 12/27/2017 Orders Only [facility] CONVERSION Scanning, Provider Social History Tobacco Use Types Packs/Day Years Used Date Smoking Tobacco: Never Alcohol Use Standard Drinks/Week Comments No 0 (1 standard drink = 0.6 oz pur e alcohol) Comments Unknown Sex and Gender Information Value Date Recorded Sex Assigned at Not on file Legal Sex Female 11:07 PM SHOCHET Gender Identity Female 12/07/2022 1:51 PM SHOCHET Sexual Orientation Straight 01/15/2024 9: 23 AM CDT documented as of this encounter Plan of Treatment Not on file documented as of this encounter Procedures Procedure Name Priority Date/Time Associated Diagnosis Comments PULMONARY FUNCTION TEST (PFT) 12/27/2017 12:49 PM CDT documented in this encounter Results * PULMONARY FUNCTION TEST (PFT) (12/27/2017 12:49 PM CDT) Anatomical Region Laterality Modality PFT us Provider Scanning PFT ORDERABLES Edited Result - Final documented in this encounter Visit Diagnoses Not on filedocumented in this encounter Care Teams Adjunct Latin Professor Relationship Specialty Start Date End Date Gonzalez Do MD [facility] [address] [place] [address] PCP - General 01/11/17 01/28/21 Gonzalez Do MD [address] [place], [place] [address]ANANYA [address] [address] [place] [address] PCP - General 01/29/21 Gonzalez Do MD [address] [place], [place] [address]NYA [address] [place] [address] 01/29/21 Chucho Banerjee MD [address] [facility] [address] [place] [address] Referring Physician Transplant 03/25/18 Mo Olson MD [address] [facility] [address] [facility] [address] [place] [address] Referring Physician Urology 03/25/18 Chadd Morton MD [address] [place] [address] Referring Physician Pulmonary Disease 03/25/18 Lance Boyce MD [address] [place] [address] Referring Physician Obstetrics and Gynecology 04/12/18 Cristina Mehta MD [address] [place] [address] Referring Physician Dermatology 10/19/18 Roxy Garcia MD [address] [address] Referring Physician Dermatology 10/19/18 Bud Soto NP [address] [address] Nurse Practitioner Nurse Practitioner 10/19/18 Zoran Calvillo MD [address] [address] Referring Physician Internal Medicine 10/19/18 Dashawn Santillan MD [address] [address] Consulting Physician Gastroenterology 10/19/18 Sanjuana Joel MD [address] [address] Referring Physician Neurology 10/22/20 Patricia Maldonado, RN Registered Nurse Pulmonary Disease 12/06/22 documented as of this encounter
--- OUTSIDE RECORDS SUMMARY | 2025-04-07 15:23 | XMS_ITS | Encounter Summary ---
Author Organization [facility] Address [address] [place] [address] Phone Care Team Providers Care Motor Runner Name Role Phone Gonzalez Do MD Primary Care Provider + Gonzalez Do MD Unavailable Chucho Banerjee MD Unavailable [phone] Mo Olson MD Unavailable [phone] Chadd Morton MD Unavailable [phone] Lance Boyce MD Unavailable [phone] Cristina Mehta MD Unavailable Roxy Garcia MD Unavailable Bud Soto NP Unavailable Zoran Calvillo MD Unavailable Dashawn Santillan MD Unavailable Sanjuana Joel MD Unavailable Patricia Maldonado RN Unavailable Unavailabl e Reason for Referral * Procedure (Routine) - Closed Specialty Diagnoses / Procedures Referred By Contac t Referred To Contact Diagnoses Pulmonary lymphangioleiomyomatosis (HCC) Procedures Pulmonary Function Test -[facility]FT [facility]- [facility]; Spirometry, Oxygen Assessment Titration, DLCO; Spirometry Chadd Morton MD [address] [place] [address] Phone: tel: fax: Referral ID Status Reason Start Date Expiration Date Visits Re quested Visits Authorized [id number] Closed 07/06/2023 08/04/2024 1 1 O CAMERA OPERATOR Reason for Visit * Procedure (Routine) - Closed Specialty Diagnoses / Procedures Referred By Contac t Referred To Contact Diagnoses Pulmonary lymphangioleiomyomatosis (HCC) Procedures Pulmonary Function Test -[facility] Adult PFT Lab- [facility]; Spirometry, Oxygen Assessment Titration, DLCO; Spirometry Cahdd Morton MD [address] [place] [address] Phone: tel: fax: Referral ID Status Reason Start Date Expiration Date Visits Re quested Visits Authorized [id number] Closed 07/06/2023 08/04/2024 1 1 Encounter Details Date Type Department Care Team (Latest Contact Info) Description 12/12/2023 3:00 PM VIDEO CAMERA OPERATOR Hospital Encounter [facility] PFT Lab [address] [place] [address] [address] [place] [address] Pulmonary lymphangioleiomyomatosis (HCC) Social History Tobacco Use Types Packs/Day Years Used Date Smoking Tobacco: Never Smokeless Tobacco: Never Alcohol Use Standard Drinks/Week Comments No 0 (1 standard drink = 0.6 oz pur e alcohol) AUDIT-C Answer Date Recorded Q1: How often do you have a drink containing alcohol? Never 02/25/2025 Q2: How many drinks containi ng alcohol do you have on a typical day when you are drinking? Patient does not drink Q3: How often do you have si x or more drinks on one occasion? Never 02/25/2025 PHQ-2 Answer Date Recorded PHQ-2 Total Score (If total score is 3 or more points, staff should administer the PHQ-9) 0 07/18/2024 Personal Safety Answer Date Recorded Have you ever been in or are you currently in a harmful physical or emotional relationship or is someone making you feel afraid or unsafe? 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 Never 02/25/2025 9:19 AM Montserrat Hunt R N Q2: How many drinks containing alcohol do you have on a typical day when you are drinking? Patient does not drink 02/25/2025 9:19 AM Montserrat Hunt RN Q3: How often do you have six or more drinks on one occasion? Never 02/25/2025 9:19 AM Montserrat Hunt R N documented as of this encounter Plan of Treatment Not on file documented as of this encounter Procedures Procedure Name Priority Date/Time Associated Diagnosis Comments PULMONARY FUNCTION TEST (PFT) Routine 12/12/2023 4:03 PM VIDEO CAMERA OPERATOR Pulmonary lymphangioleiomyomatosis (HCC) documented in this encounter Results * Pulmonary Function Test - (12/12/2023 4:03 PM VIDEO CAMERA OPERATOR) FVC PRE 4.21 L [facility] FVC %PRE PRED 116 % [facility] FEV1 PRE 3.20 L [facility] FEV1 %PRE PRED 111 % [facility] FEV1/FVC PRE 76.0 % [facility] DLCO PRE 20.7 ml/min/mmH g [facility] DLCO %PRE PRED 96 % [facility] Anatomical Region Laterality Modality PFT 12/12/2023 3:14 PM VIDEO CAMERA OPERATOR Impressions 12/13/2023 4:25 PM VIDEO CAMERA OPERATOR There is no ventilatory defect. There is no impairment of alveolar gas exchange by DLCO. Compared with study dated 12/06/2022 , there has been no significant interval change. Konrad Tamez MD The attending pulmonary physician certifies a physician presence in the [facility] during the administration of aerosolized bronchodilator. The attending pulmonary physician certifies that he/she has reviewed and interpreted the graphic and numerical data of this pulmonary function study and agrees with the written final report. The lower limit of normal for PO2 and %HbO2 is age dependent. However, the [facility] Pulmonary Function Laboratory defines hypoxemia as a PO2 <55 or a %HbO2 <89. Narrative 12/13/2023 4:25 PM VIDEO CAMERA OPERATOR Table formatting from the original result was not included. [facility] Division of Pulmonary & Critical Care Medicine [address] [place] [address]; [place] [facility]; [place] [address]; [phone] Pulmonary Function Laboratory Pulmonary Stress Test Simple/Oxygen Assessment Patient: Jessa Alves Date: 12/12/2023 : 1970 Ht: 66.75 IN Wt: 153 LBS Time (min) Distance (ft)/ Chung O2 L/M SpO2 HR Ximena* BP FEV1 % Pred Rest: RA 100 70 0 157/76 3.20 111% Walk/Bike: 1 RA 100 96 0 2 RA 100 102 0 3 RA 100 100 1 4 RA 100 98 1 5 RA 100 98 2 6 min 0 sec RA 100 101 2 Recovery: 1 RA 99 89 1 174/71 3.27 114% 3 RA 99 78 0.5 *Ximena rate of perceived exertion (1-10 dyspnea scale) Bobby, CHEST 2003; 123:1408 Walk Test Summary: Six Minute Walk Distance: 1250 ft Six-minute Walk Work [distance (m) x body wt (kg)]: 33348 kg.m (normal >60,000kg.m) Oxygen required to maintain SpO2 greater than 90% during six minutes of walkin L/M Comments: ATS SCRIPT, HEAD SENSOR, 0 STOPS,O2 ASSESSMENT. Interpretation: Breathing room air, SpO2 is normal at rest. During exercise sufficient to increase pulse from 70 to 102b/min, SpO2 is stable. On this basis, SpO2 is adequate at rest breathing room air and while walking breathing room air. This level of exercise is associated with no significant change of FEV1. Konrad Tamez M.D. By signing this report, the attending pulmonary physician certifies that he/she has personally reviewed and interpreted the graphic and numerical data associated with this pulmonary function study and has reviewed and /or edited a preliminary draft report and agrees with the written final report. PFT performed at:->[facility] Adult PFT Lab- [facility] Procedure:->Spirometry Procedure:->Oxygen Assessment Titration Procedure:->DLCO DLCO:->Spirometry Pulmonary Function Test Interpretation SPIROMETRY: The FEVI and FVC are normal. The FEVI to FVC ratio is normal. FLOW VOLUME LOOPS: The inspiratory loop is suggestive of submaximal effort. DIFFUSING CAPACITY: The diffusing capacity is normal. Note that the value for diffusing capacity is not corrected for hemoglobin and that anemia may decrease the reported value. PULSE OXIMETRY: See Oxygen Assessment/Cardiopulmonary Exercise Study-Simple us Chadd Morton MD PFT ORDERABLES Final Result documented in this encounter Visit Diagnoses Diagnosis Pulmonary lymphangioleiomyomatosis (HCC) documented in this encounter Care Teams Motor Runner Relationship Specialty Start Date End Date Gonzalez Do MD [facility] [address] [place] [address] PCP - General 01/29/21 Gonzalez Do MD [address] [place], [place] [address]ANANYA [address] [place] [address] 01/29/21 Chucho Banerjee MD [address] [facility] [address] [facility] [address] [place] [address] Referring Physician Transplant 03/25/18 Mo Olson MD [address] [facility] [address] [facility] [address] [place] [address] Referring Physician Urology 03/25/18 Chadd oMrton MD [address] [place] [address] Referring Physician Pulmonary Disease 03/25/18 Lance Boyce MD [address] [facility] [address] [place] [address] Referring Physician Obstetrics and Gynecology 04/12/18 Cristina Mehta MD [address] [address] Referring Physician Dermatology 10/19/18 Roxy Garcia MD [address] [address] Referring Physician Dermatology 10/19/18 Bud Soto NP [address] [address] Nurse Practitioner Nurse Practitioner 10/19/18 Zoran Calvillo MD [address] [address] Referring Physician Internal Medicine 10/19/18 Dashawn Santillan MD [address] [address] Consulting Physician Gastroenterology 10/19/18 Sanjunaa Joel MD [address] [address] Referring Physician Neurology 10/22/20 Patricia Maldonado RN Registered Nurse Pulmonary Disease 12/06/22 documented as of this encounter
--- OUTSIDE RECORDS SUMMARY | 2025-04-07 15:23 | XMS_ITS | Encounter Summary ---
Author Organization [facility] Address [address] [place] [address] Care Team Providers Care Assistant Golf Professional Name Role Phone Gonzalez Do MD Primary Care Provider + Gonzalez Do MD Unavailable Chucho Banerjee MD Unavailable [phone] Mo Olson MD Unavailable [phone] Chadd Morton MD Unavailable [phone] Lance Boyce MD Unavailable Cristina Mehta MD Unavailable Roxy Garcia MD Unavailable [phone] Bud Soto NP Unavailable Zoran Calvillo MD Unavailable Dashawn Santillan MD Unavailable Sanjuana Joel MD Unavailable Patricia Maldonado RN Unavailable Unavailabl e Encounter Details Date Type Department Care Team (Late st Contact Info) Description 02/26/2021 Telephone [facility] Imaging [address] [address] [address] Pippa Anguiano, [place] Social History Tobacco Use Types Packs/Day Years Used Date Smoking Tobacco: Never Smokeless Tobacco: Never Alcohol Use Standard Drinks/Week Comments No 0 (1 standard drink = 0.6 oz pur e alcohol) AUDIT-C Answer Date Recorded Q1: How often do you have a drink containing alc ohol? 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 Not on file Not on file documented as of this encounter Plan of Treatment Not on file documented as of this encounter Visit Diagnoses Not on filedocumented in this encounter Care Teams Assistant Golf Professional Relationship Specialty Start Date End Date Gonzalez Do MD [facility] [address] [place] [address] PCP - General 01/29/21 Gonzalez Do MD [address] [place], [place] [address]ANANYA [address] [place] [address] 01/29/21 Chucho Banerjee MD [address] [place] [address] Referring Physician Transplant 03/25/18 Mo Olson MD [address] [place] [address] Referring Physician Urology 03/25/18 Chadd Morton MD [address] [place] [address] Referring Physician Pulmonary Disease 03/25/18 Lance Boyce MD [address] [facility] [address] [place] [address] Referring Physician Obstetrics and Gynecology 04/12/18 Cristina Mehta MD [address] [address] Referring Physician Dermatology 10/19/18 Roxy Garcia MD [address] [address] Referring Physician Dermatology 10/19/18 Bud Soto NP [address] [address] Nurse Practitioner Nurse Practitioner 10/19/18 Zoran Calvillo MD [address] [address] Referring Physician Internal Medicine 10/19/18 Dashawn Santillan MD [address] [address] Consulting Physician Gastroenterology 10/19/18 Sanjuana Joel MD [address] [address] Referring Physician Neurology 10/22/20 Patricia Maldonado, RN Registered Nurse Pulmonary Disease 12/06/22 documented as of this encounter
--- OUTSIDE RECORDS SUMMARY | 2025-04-07 15:23 | XMS_ITS | Referral Summary ---
Author Organization [facility] Healthcare Address [address] [place] [address] Care Team Providers Care Human Factors Ergonomist Name Role Phone Gonzalez Do MD Primary Care Provider + Gonzalez Do MD Unavailable Chucho Banerjee MD Unavailable [phone] Mo Olson MD Unavailable [phone] Chadd Morton MD Unavailable [phone] Lance Boyce MD Unavailable Cristina Mehta MD Unavailable Roxy Garcia MD Unavailable [phone] Bud Soto NP Unavailable Zoran Calvillo MD Unavailable Dashawn Santillan MD Unavailable Sanjuana Joel MD Unavailable Patricia Maldonado RN Unavailable Unavailabl e Encounters Date Type Department Care Team Description 5 Telephone [facility] Scheduling [address] [place] [address] Heather Ivy RMA Scheduling Appointments 5 2:00 PM CDT Office Visit [facility] Epilepsy [address] [facility] 6th [place] [address] [place] [address] Lucas Allen MD Tuberous sclerosis syndrome (HCC) (Primary Dx) 5 Documentation [facility] Pediatric Neurology [facility] [address] [place] [address] Melia Carmona RN 5 1:20 PM CDT Office Visit [facility] Urology [address] [place] [address] Medical Office Building [address] [place] [phone] Carole Aiken NP Encounter for removal of ureteral stent (Primary Dx) [address] [place] [address] Gonzalez Do MD 5 10:50 AM CDT - 5 12:50 PM CDT Surgery [facility] Operating Room [address] [place] [address] Declan Ding MD RIGHT URETEROSCOPY - Calculus 5 10:08 AM CDT Anesthesia Event [facility] Operating Room [address] [place] [place] [address] Luan Mathews MD Meiners, Alea Marie, NP 5 8:56 AM CDT - 5 1:31 PM CDT Hospital Encounter [facility] Operating Room [address] [place] [place] [address] Declan Dign MD Kidney stone Discharge Disposition: Discharge to home or self care 5 Telephone [facility] Urology [address] [place] [address] Office Building [address] [place] [phone] Mariella Flynn CMA 5 10:00 AM CDT Telemedicine [facility] Urology [address] [place] [address] Medical Office Building [address] [place] [address] Declan Ding MD Kidney stone (Primary Dx) 5 [facility] Urology [address] [facility] 11th [place] [address] [place] [address] Raghu Betancourt 5 Results Follow-Up Nephrology Chucho Banerjee MD CT Abdomen Pelvis WO Contrast 5 2:30 PM CDT Office Visit [address] [place] [address] Marlene Ramírez, JAME Migraine without aura and without status migrainosus, not intractable (Primary Dx); Primary hypertension; Kidney stone 5 12:55 PM CDT - 5 11:59 PM CDT Hospital Encounter [facility] [address] [place] [address] Stage 3 chronic kidney disease, unspecified whether stage 3a or 3b CKD (HCC) Discharge Disposition: Discharge to home or self care 5 Orders Only [facility] Pulmonary [address] [facility] 8th [place] [address] [place] [address] Chadd Morton MD Tuberous sclerosis syndrome (HCC) (Primary Dx); Cystic-bullous disease of lung; Pulmonary lymphangioleiomyomatosis (HCC) 5 Orders Only [facility] Pulmonary [address] [facility] 8th [place] [address] [place] [address] Chadd Morton MD 5 2:30 PM CDT Office Visit [facility] Pulmonary [address] [facility] Medical Office Building 2 [address] [place] [phone] Chadd Morton MD Obstructive sleep apnea syndrome (Primary Dx); Tuberous sclerosis syndrome (HCC); Fingernail abnormalities; Cystic-bullous disease of lung; High risk medication use 5 1:20 PM CDT - 5 11:59 PM CDT Hospital Encounter [facility] PFT Lab [address] [facility] Medical Office Building 2 [address] [place] [address] Pulmonary lymphangioleiomyomatosis (HCC); Tuberous sclerosis syndrome (HCC) Discharge Disposition: Discharge to home or self care from Last 3 Months Allergies Active Allergy Reactions Criticality Noted Date Comments Iodinated Contrast Media Anaphylaxis,Swelling High 07/31/2007 CT dye anaphylaxis ( pt able to take MRI dye) Iodine Anaphylaxis High 07/31/2007 CT dye anaphylaxis (pt able to take MRI dye) Ioversol Anaphylaxis High Medications acidophilus-pec tin, citrus 100 million cell-10 mg capsuleIndicati ons:for supplement 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 6 Active multivitamin tabletIndicatio ns:Vitamin Deficiency Prevention Take 1 tablet by mouth daily before breakfast Active cholecalciferol (VITAMIN D-3) 1000 unit tabletIndicatio ns:Vitamin D Deficiency Take 1 tablet (1,000 Units total) by mouth daily before breakfast Active fluticasone propionate (FLONASE) 50 mcg/actuation nasal spray Administer 1 spray into each nostril 2 (two) times a day 1 Inhaler 5 0 Active Additional Information Patient taking differently:1 spray each nostril 2 times daily,Indications: Allergic Rhinitis, Informant: Self, Reported on 03/19/2025 ferrous sulfate 325 mg (65 mg of elemental iron) tabletIndicatio ns:Iron Deficiency Anemia Take 1 tablet (325 mg total) by mouth daily before breakfast Active cyanocobalamin (Vitamin B-12) 1,000 mcg tabletIndicatio ns:Prevention of Vitamin B12 Deficiency Take 1 tablet (1,000 mcg total) by mouth daily before breakfast Active acetaminophen (TYLENOL) 325 mg tablet Take 2 tablets (650 mg total) by mouth every 6 (six) hours as needed for pain Active estradioL (ESTRACE) 0.01 % (0.1 mg/gram) vaginal creamIndication s:Atrophic Vaginitis associated with Menopause Insert 2 g into the vagina nightly For two weeks; then every other night for two weeks; then twice a week for duration 42.5 g 3 4 Active albuterol HFA (ProAir HFA) 90 mcg/actuation inhaler Inhale 2 puffs every 6 (six) hours as needed for wheezing 1 each 5 4 Active Additional Information Patient taking differently:2 puff inhalation Every 6 hours PRN,wheezing, shortness of breath, Informant: Self, Reported on 03/19/2025 sirolimus (RAPAMUNE) 1 mg tabletIndicatio ns:kidney and lung lesions Take 3 tablets (3 mg total) by mouth daily before breakfast 270 tablet 5 Active labetaloL (NORMODYNE,PALACIOS DATE) 200 mg tabletIndicatio ns:hypertension Take 1 tablet (200 mg total) by mouth 2 (two) times a day 200 mg AM/150 mg PM 180 tablet 3 5 Active zonisamide (ZONEGRAN) 50 mg capsuleIndicati ons:mood Take 1-2 capsules (50-100 mg total) by mouth 2 (two) times a day 50mg in the morning and 100 mg at night 360 capsule 3 5 02/25/20 26 Active HYDROcodone-jens taminophen (NORCO) 5-325 mg per tabletIndicatio ns:Pain Take 1 tablet by mouth every 4 (four) hours as needed for pain 10 tablet 5 Active phenazopyridine (PYRIDIUM) 100 mg tablet Take 1 tablet (100 mg total) by mouth 3 (three) times a day as needed for urinary pain (pain with urination) 30 tablet 5 Active Active Problems Problem Noted Date Diagnosed Date History of esophagitis 07/18/2024 Kidney stone 01/22/2024 Assessment & Plan (01/15/2025 5:33 PM CDT): Concern for recurrent kidney stones with topiramate We will start zonisamide for migraine prevention Dyslipidemia 10/22/2020 Prediabetes 10/21/2019 Fingernail abnormalities 11/29/2018 Overview (11/29/2018): Added automatically from request for surgery [id number] Edema 04/12/2018 Overview (04/16/2018): Echo 08/25 nl lvf Lymphedema 04/12/2018 Cobalamin deficiency 09/19/2017 Renal osteodystrophy 07/17/2017 Stage 3 chronic kidney disease 07/17/2017 Numbness in both legs 11/16/2016 Endometriosis 04/08/2016 Asthma 02/24/2016 Overview (04/16/2018): pfts 08/25 nl Anemia 02/23/2016 Arteriosclerotic vascular disease 02/23/2016 Overview (04/16/2018): Renal/hepatic angiomyolipomas Obstructive sleep apnea syndrome 02/23/2016 Overview (04/16/2018): cpap Hay fever 02/15/2016 Chronic sinusitis 01/04/2016 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 Dietary sodium restriction. Regular aerobic exercise. Continue current medications. Blood pressure will be reassessed at the next regular appointment. 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 Pituitary hormonal testing is entirely normal. My recommendation is to recheck imaging per neurosurgery and recheck pituitary labs every 2 years. No treatment is needed, pt reassured. 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 She is agreeable to genetic testing and would appreciate a referral. I will refer her to medical genetics (Dr. Huston) for genetic testing. Several [employer] offer TSC panels (TSC1 and TSC2) genes. Resolved Problems Problem Noted Date Diagnosed Date Resolved Date Family history of eosinophilic esophagitis 07/18/2024 07/18/2024 Overweight 01/29/2022 04/08/2024 Polyneuropathy 03/04/2020 07/18/2024 Eosinophilic esophagitis 09/11/201707/2024 Immunizations Immunization Administration Dates Next Due Influenza, Quadrivalent, Maegan l Culture-based MDCK, Preservative Free, Antibiotic Free, Intramuscular 09/03/2019,07/17/2018 Influenza, Quadrivalent, Spl it, Preservative Free, Intramuscular 07/17/2023 Influenza, Trivalent, IM (MDV) 09/08/2014 Influenza, Trivalent, Preser vative Free, Intramuscular 09/27/2013 Influenza, Trivalent, Recomb inant, Egg Free, Preservative Free, Antibiotic Free, IM (FLUBLOK) 07/18/2024 Influenza, Trivalent, Split, Preservative Free, Intradermal 09/19/2017 Influenza, Unspecified 07/08/2020,07/17/2018 Pfizer SARS-CoV-2 Monovalent Vaccination (12+ Yrs) PURPLE 11/20/2020,10/30/2020 Pneumococcal Conjugate Pcv20 11/30/2021 Pneumococcal Polysaccharide PPV23 09/19/2017 Tdap 10/22/2019,03/19/2007,10/09/2006 ZOSTER Recombinant 01/26/2022,11/09/2021 Social History Tobacco Use Types Packs/Day Years Used Date Smoking Tobacco: Never Smokeless Tobacco: Never Tobacco Cessation:Counseling Given: Not Answered Alcohol Use Standard Drinks/Week Comments No 0 [...] on file 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 Gender Identity Female 12/07/2022 1:51 PM SATELLITE INSTALLER Sexual Orientation Straight 01/15/2024 9: 23 AM CDT 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 Not on file Not on file Last Filed Vital Signs Vital Sign Reading Time Taken Comments Blood Pressure 148/74 03/19/2025 1:55 PM CDT Pulse 87 03/19/2025 1:55 PM CDT Temperature 36 C (96.8 F) 02/25/2025 12:25 PM CDT Respiratory Rate 21 02/25/2025 1:15 PM CDT Oxygen Saturation 100% 02/25/2025 1:15 PM CDT Inhaled Oxygen Concentration - - Weight 75 kg (165 lb 6.4 oz) 03/19/2025 1:55 PM CDT Height 170.2 cm (5' 7) 03/19/2025 1:55 PM CDT Body Mass Index 25.91 03/19/2025 1:55 PM CDT Plan of Treatment Not on file Medical Devices Implanted Type Area Radiologic Technology Instructor Device Identifier Shelf Expiration Date Model / Serial / Lot Ltclavicle Fx,Ortho Instrumentation ,Plate/Screws Implanted:01/28 (Quantity not on file) Screw Left: Clavicle Explanted Type Area Radiologic Technology Instructor Device Identifier Shelf Expiration Date Model / Serial / Lot [employer] Universa 6fr 28cm Firm Positioner Monofilament Tether Stent [id number] - [id number] Implanted:Qty: 1 on 01/26/2024 at [facility] Explanted:Qty: 1 on 02/25/2025 by Declan Ding MD at [facility] Right: Ureter [employer] 07/21/2026 [id number] / / [id number] [employer] Universa 6fr 28cm Firm Positioner Monofilament Tether Stent [id number] - [id number] Implanted:Qty: 1 on 02/25/2025 at [facility] Explanted:Qty: 1 on 03/04/2025 by Carole Aiken NP Right: Ureter [employer] 11/13/2027 [id number] / / [id number] Procedures Procedure Name Priority Date/Time Associated Diagnosis Comments FL FLUOROSCOPY < 1 HOUR IP Routine 02/25/2025 12:24 PM CDT SURGICAL PATHOLOGY Routine 02/25/2025 10:37 AM CDT Kidney stone AZ AN PROCEDURE PLACEHOLDER Routine 02/25/2025 10:35 AM CDT AZ AN ELECTIVE SUPRAGLOTTIC AIRWAY Routine 02/25/2025 10:35 AM CDT PLACEMENT STENT - URETERAL 02/25/2025 10:12 AM CDT Kidney stone LASER - LITHOTRIPSY - THULIUM 02/25/2025 10:12 AM CDT Kidney stone URETEROSCOPY 02/25/2025 10:12 AM CDT Kidney stone URINE CULTURE Routine 02/14/2025 11:16 AM CDT Kidney stone CT ABDOMEN PELVIS WO CONTRAST Schedule Routine, Read Routine (OP Routine) 01/13/2025 1:04 PM CDT Stage 3 chronic kidney disease, unspecified whether stage 3a or 3b CKD (HCC) PULMONARY FUNCTION TEST (PFT) Routine 01/07/2025 1:49 PM CDT 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 Please refer to the physician's procedure / OR operative note. us Declan Ding MD IMG FLUOROSCOPY PROC EDURES Final Result [facility] * Surgical pathology (02/25/2025 10:37 AM CDT) Tissue (Calculus/calculi /stone, gross and Chemical Analysis) 02/25/2025 10:37 AM CDT Narrative PATHOLOGY [facility] - 02/26/2025 2:40 PM CDT EPIC results best viewed via link to PDF [facility] [place] [address] Note to Patients: This report may contain a detailed description of human tissue sent by a health care provider to the laboratory for pathologic evaluation. The content of this report is essential for diagnosis and may provide important critical findings. This information may be unfamiliar to patients to review without a medical professional present. It is advised that the patient review this report in the presence of a health care provider who can answer questions and explain the details. SURGICAL PATHOLOGY REPORT FINAL WITH ADDENDUM Patient Name: TAYLOR ALVES Gender: F : 1970 (Age: 55) Address: [address] [place] [address] [facility]: [id number] Taken:02/25/2025 Received:02/25/2025 Reported: 02/26/2025 Patient Type: [facility] EP SAME Client [facility] Service: Surgery Location: Physician(s): Germain Fernandez M.D. Diagnosis: Right kidney, stone, removal - Lithiasis (gross examination only, sent for chemical analysis) elsw/02/26/2025 10:53 By this signature, I attest that the above diagnosis is based upon my personal examination of the slides(and/or other material indicated in the diagnosis). Ramon Cross M.D. Report Electronically Reviewed and Signed Out By Ramon Cross M.D. 02/26/2025 14:40:45 History: The patient is a 55-year-old woman presenting for kidney stone. Operative procedure: Right ureteroscopy calculus, laser lithotripsy thulium, placement stent ureteral. Specimen(s) Received: A: Right kidney stone Gross Description: Received in without fixative, labeled with the patient s identifiers and right kidney stone consists of multiple lopez multifaceted stone(s) measuring 1.0 x 0.2 x 0.1 cm in aggregate. Entirely submitted for chemical analysis. Jar 0. PA(s): Jocelyn Pennington By this signature, I attest that the above diagnosis is based upon my personal examination of the slides(and/or other material). Addenda/Procedures Addendum Ordered:03/24/2025Status:Signed OutAddendum Complete:03/24/2025y:Hernan Dallas M.D., PH.D.Addendum Signed Out:04/01/2025 Addendum Diagnosis A digital scan of the original reference lab report will begin on page two of this addendum. By this signature, I attest that the above diagnosis is based upon my personal examination of the slides(and/or other material indicated in the diagnosis). Hernan Dallas M.D., PH.D.Report Electronically Reviewed and Signed Out By Hernan Dallas M.D., PH.D. 04/01/2025 16:34:01 Microscopic slide review and interpretation for this case was performed at [facility], Department of Surgical Pathology, [address] [facility] [address], [id number], [place] [address] CLIA # [id number] The performance characteristics of some immunohistochemical stains, fluorescence in-situ hybridization tests and immunophenotyping by flow cytometry cited in this report (if any) were determined by the Surgical Pathology and Flow Cytometry Departments at [facility] as part of an ongoing software quality automation engineer program and in compliance with federally mandated regulations drawn from the Clinical Laboratory Improvement Act of 1988 (CLIA '88). Some of these tests rely on the use of analyte specific reagents and are subject to specific labeling requirements by the US Food and Drug Administration. Such diagnostic tests may only be performed in a facility that is certified by the Department of Health and Human Services as a high complexity laboratory under CLIA '88. The FDA has determined that such clearance or approval is not necessary. This test is used for clinical purposes. It should not be regarded as investigational or for research. Nevertheless, federal rules concerning the medical use of analyte specific reagents require that the following disclaimer be attached to the report: This test was developed and its performance characteristics determined by the Surgical Pathology and Flow Cytometry Departments of [facility]. It has not been cleared or approved by the U. S. Food and Drug Administration. IMAGES AND SCANNED DOCUMENTS, IF INCLUDED, ONLY VIEWABLE IN PDF VERSION OF REPORT Declan Ding MD LAB PATHOLOGY ORDERA BLES Final Result Performing Organization Address City/State/[facility] Co de Phone Number PATHOLOGY [facility] [phone] * [place] AN ELECTIVE SUPRAGLOTTIC AIRWAY, AZ AN PROCEDURE PLACEHOLDER (02/25/2025 10:35 AM CDT) Narrative Chadwick Bee CRNA - 02/25/2025 10:35 AM CDT Chadwick Bee CRNA 02/25/2025 10:35 AM Airway Patient location: OR Urgency: elective Indications for airway management: anesthesia Difficult airway: no Airway prep: Preoxygenated: yes Patient position: sniffing Mask difficulty assessment: 0 - not attempted Spontaneous ventilation during airway: absent Sedation level during airway: GA Final airway details: Final airway type: supraglottic airway Final supraglottic airway: IGel SGA size: 4 Number of attempts: 1 Ventilation between attempts: none us Luan Mathews MD ANESTHESIA ORDERABLES Fin al Result * Urine culture Urine, clean voided (02/14/2025 11:16 AM CDT) Urine culture [facility] Comment: CULTURE, URINE, ROUTINE Micro Number: [id number] Test Status: Final Specimen Source: Urine, clean catch Specimen Quality: Adequate Result: Mixed genital landen isolated. These superficial bacteria are not indicative of a urinary tract infection. No further organism identification is warranted on this specimen. If clinically indicated, recollect clean-catch, mid-stream urine and transfer immediately to Urine Culture Transport Tube. Urine, clean voided 02/14/2025 11:16 AM CDT 02/14/2025 11:16 AM CDT Declan Ding MD LAB MICROBIOLOGY - G ENERAL ORDERABLES Final Result [facility] [address] [place] [address] * CT Abdomen Pelvis WO Contrast (01/13/2025 1:04 PM CDT) Anatomical Region Laterality Modality Body N/A Computed Tomogra phy 01/13/2025 3:02 PM CDT Impressions 01/13/2025 4:50 PM CDT 1. Right small distal obstructing 4mm ureteral stone. No hydronephrosis. Additional nonobstructing renal calculi. 2. No significant change in bilateral renal lesions better characterized on MRI. 3. No interval change in numerous cysts in the lung bases in keeping with tuberous sclerosis. Dictated by: Musa Salinas MD The radiology attending physician has personally reviewed this study, and had reviewed and/or edited this written report and agrees with it. Electronically signed by: Collette Quiñones M.D. Narrative 01/13/2025 4:50 PM CDT EXAMINATION: Computed tomography of the abdomen and pelvis without intravenous contrast HISTORY: Flank pain TECHNIQUE: Transaxial computed tomographic images of the abdomen and pelvis were obtained without intravenous contrast according to the standard protocol. COMPARISON: MRI 01/17/2024 FINDINGS: Multiple thin walled cyst in the imaged portion of the lung bases, unchanged. Fat containing bilateral Bochdalek hernias. Multiple low attenuating and fat density lesions throughout the liver consistent with angiomyolipomas. Numerous hypoattenuating renal cysts. Known renal angiomyolipomas better seen on MR. Right small distal obstructing 4mm ureteral stone. No hydronephrosis. Additional nonobstructing renal calculi. No hydroureteronephrosis. Otley in the left retroperitoneum Large small bowel normal in caliber. No bowel obstruction. Small hiatal hernia. No free intraperineal fluid or gas. Uterus is present. Urinary bladder is normal. No abdominal pelvic lymphadenopathy. No suspicious osseous lesion. Procedure Note Collette Quiñones MD - 01/13/2025 EXAMINATION: Computed tomography of the abdomen and pelvis without intravenous contrast HISTORY: Flank pain TECHNIQUE: Transaxial computed tomographic images of the abdomen and pelvis were obtained without intravenous contrast according to the standard protocol. COMPARISON: MRI 01/17/2024 FINDINGS: Multiple thin walled cyst in the imaged portion of the lung bases, unchanged. Fat containing bilateral Bochdalek hernias. Multiple low attenuating and fat density lesions throughout the liver consistent with angiomyolipomas. Numerous hypoattenuating renal cysts. Known renal angiomyolipomas better seen on MR. Right small distal obstructing 4mm ureteral stone. No hydronephrosis. Additional nonobstructing renal calculi. No hydroureteronephrosis. Bib in the left retroperitoneum Large small bowel normal in caliber. No bowel obstruction. Small hiatal hernia. No free intraperineal fluid or gas. Uterus is present. Urinary bladder is normal. No abdominal pelvic lymphadenopathy. No suspicious osseous lesion. IMPRESSION: 1. Right small distal obstructing 4mm ureteral stone. No hydronephrosis. Additional nonobstructing renal calculi. 2. No significant change in bilateral renal lesions better characterized on MRI. 3. No interval change in numerous cysts in the lung bases in keeping with tuberous sclerosis. Dictated by: Musa Salinas MD The radiology attending physician has personally reviewed this study, and had reviewed and/or edited this written report and agrees with it. Electronically signed by: Collette Quiñones M.D. Chucho Banerjee MD IMG CT PROCEDURES Final Result * Pulmonary Function Test - (01/07/2025 1:49 PM CDT) FVC PRE 4.[address] [facility] HEALTHCARE FVC %PRE PRED 130 % [facility] FEV1 PRE 3.44 L [facility] FEV1 %PRE PRED 126 % [facility] FEV1/FVC PRE 77.1 % [facility] Anatomical Region Laterality Modality PFT 01/07/2025 1:26 PM CDT Narrative 01/09/2025 9:58 AM CDT Table formatting from the original result was not included. [facility] Division of Pulmonary & Critical Care Medicine [address] [place] [address]; [place] [address] [facility]; [place] [address]; [phone] Pulmonary Function Laboratory Pulmonary Stress Test Simple/Oxygen Assessment Patient: Taylor Alves Date: 01/07/2025 : 1970 Ht: 66.75 IN Wt: 158 LBS Time (min) Distance (ft)/ Chung O2 L/M SpO2 HR Ximena* BP FEV1 % Pred Rest: RA 99 81 1 137/75 3.44 126% Walk/Bike: 1 RA 100 93 1 2 RA 98 96 1 3 RA 98 98 1 4 RA 98 99 1 5 RA 98 97 1 6 min 0 sec RA 99 96 1 Recovery: 1 RA 100 88 1 129/74 3.32 122% 3 *Ximena rate of perceived exertion (1-10 dyspnea scale) Bobby, CHEST 2003; 123:1408 Walk Test Summary: Six Minute Walk Distance: 1240 ft Six-minute Walk Work [distance (m) x body wt (kg)]: 99991 kg.m (normal >60,000kg.m) Oxygen required to maintain SpO2 greater than 90% during six minutes of walkin L/M Comments: Interpretation: Breathing room air, SpO2 is normal at rest. During exercise sufficient to increase pulse, SpO2 is stable. On this basis, SpO2 is adequate at rest breathing room air and while walking breathing room air. This level of exercise is associated with no significant change of FEV1. Konrad Tamez MD By signing this report, the attending pulmonary physician certifies that he has personally reviewed and interpreted the graphic and numerical data associated with this pulmonary function study and has reviewed and /or edited a preliminary draft report and agrees with the written final report. PFT performed at:->[facility] Adult PFT Lab- [facility] Procedure:->Spirometry Procedure:->Oxygen Assessment Titration Pulmonary Function Test Interpretation SPIROMETRY: The FEV1 and FVC are normal. The FEV1 to FVC ratio is normal. The inspiratory loop is suggestive of submaximal effort. The shape of the expiratory limb of the flow-volume curve is suggestive of submaximal effort. PULSE OXIMETRY: See Oxygen Assessment/Cardiopulmonary Exercise Study-Simple Impression: There is no ventilatory defect. Compared with most recent study, there has been significant interval improvement of the FVC. Konrad Tamez MD The attending pulmonary physician certifies a physician presence in the [facility] during the administration of aerosolized bronchodilator. The attending pulmonary physician certifies that he has reviewed and interpreted the graphic and numerical data of this pulmonary function study and agrees with the written final report. The lower limit of normal for PaO2 and %HbO2 is age dependent. However, the [facility] Pulmonary Function Laboratory defines hypoxemia as a PaO2 <56 mm Hg or a %HbO2 <89%. Starting on October of 2024 the [facility] Pulmonary Function Laboratory utilizes race neutral GLI Global normative equations. Chadd Morton MD PFT ORDERABLES Final Result * Screening Mammogram Bilateral W Romel (07/10/2024 2:35 PM CDT) Anatomical Region Laterality Modality Breast Bilateral Mammography Impressions 07/10/2024 2:45 PM CDT BI-RADS ATLAS category (overall): 1 - Negative There is no mammographic evidence of malignancy. A 1 year screening mammogram is recommended. The patient has been or will be contacted. We recommend annual screening mammography for women at average risk of breast cancer beginning at age 40, based on guidelines of the [employer] (ACR Practice Parameter for the Performance of Screening and Diagnostic Mammography) and [employer]. For women with and elevated risk of breast cancer, please refer to the ACR Practice Parameter for specific screening recommendations. The patient will be entered into a reminder system with a target due date of 1 year for her next screening exam. Narrative 07/10/2024 2:45 PM CDT Screening Mammogram Bilateral W Romel: 07/10/24 The study was acquired using full field digital technology and interpreted from soft copy. 2D digital mammographic views, as well as 3D digital tomosynthesis were performed in the CC and MLO projections. CLINICAL: Screening mammogram, encounter for. No relevant medical history has been documented for this patient. History of breast cancer in Neg Hx. COMPARISONS: 06/09/2023 Screening Mammogram Bilateral W Romel 02/28/2022 Screening Mammogram Bilateral W Romel BREAST TISSUE: The breasts are extremely dense, which lowers the sensitivity of mammography. FINDINGS: No suspicious masses, suspicious calcifications, or other suspicious findings are seen within either breast. There has been no suspicious change. Self Screening Mammogram IMG MAMMO PROCEDURES Fi nal Result * Pap Smear (06/09/2022) 06/09/2022 [facility] Provider LAB PATHOLOGY ORDERABLES Final Result * Hepatitis C antibody (03/15/2022 8:49 AM CDT) Hep C Ab NON-REACTI VE NON-REACT ARLETH [facility] SIGNAL TO CUT-OFF 0.22 <1.00 [facility] Comment: HCV antibody was non-reactive. There is no laboratory evidence of HCV infection. In most cases, no further action is required. However, if recent HCV exposure is suspected, a test for HCV RNA (test code 68505) is suggested. For additional information please refer to http://education.Imcompany.AmeriWorks/faq/TPR08i9 (This link is being provided for informational/ educational purposes only.) Blood specimen (specimen) 03/15/2022 8:49 AM CDT 03/15/2022 8:51 AM CDT Narrative [facility] - 03/16/2022 11:39 PM CDT FASTING:YES FASTING: YES Gonzalez Do MD LAB MICROBIOLOGY - GENER AL ORDERABLES Final Result [facility] [employer] [facility] [id number] [address] [place] [id number] * COLONOSCOPY (10/09/2015) Colonoscopy Normal us Historical Provider MD HEALTH MAINTENANCE Final Result from Last 3 Months or Most Recently Relevant to Health Maintenance Insurance ANTHEM ACCESS CHOICE [facility] ANTHEM ACCESS CHOICE BLUE [facility] Care Teams Human Factors Ergonomist Relationship Specialty Start Date End Date Gonzalez Do MD [address] [place], [place] [address]ANANYA Ruiz [address] [place] [address] PCP - General 01/29/21 Gonzalez Do MD [address] [place], [place] [address]ANANYA LAWRENCE [address] [place] [address] 01/29/21 Chucho Banerjee MD [address] [facility] [address] [place] [address] Referring Physician Transplant 03/25/18 Mo Olson MD [address] [facility] [address] [place] [address] Referring Physician Urology 03/25/18 Chadd Morton MD [address] [place] [address] Referring Physician Pulmonary Disease 03/25/18 Lance Boyce MD [address] [place] [address] Referring Physician Obstetrics and Gynecology 04/12/18 Cristina Mehta MD [address] [place] [address] Referring Physician Dermatology 10/19/18 Roxy Garcia MD [address] [place] [address] Referring Physician Dermatology 10/19/18 Bud Soto NP [address] [facility] [address] [place] [address] Nurse Practitioner Nurse Practitioner 10/19/18 Zoran Calvillo MD [address] [facility] [address] [place] [address] Referring Physician Internal Medicine 10/19/18 Dashawn Santillan MD [address] [facility] [address] [place] [address] Consulting Physician Gastroenterology 10/19/18 Sanjuana Joel MD [address] [facility] [address] [place] [address] Referring Physician Neurology 10/22/20 Patricia Maldonado, RN Registered Nurse Pulmonary Disease 12/06/22
--- OUTSIDE RECORDS SUMMARY | 2025-04-07 15:23 | XMS_ITS | Encounter Summary ---
Author Organization [facility] Address [address] [place] [address] Phone Care Team Providers Care Change Lead Name Role Phone Gonzalez Do MD Primary Care Provider + Gonazlez Do MD Primary Care Provider + Gonzalez Do MD Unavailable [phone] Chucho Banerjee MD Unavailable [phone] Mo Olson MD Unavailable [phone] Chadd Morton MD Unavailable [phone] Lance Boyce MD Unavailable [phone] Cristina Mehta MD Unavailable Roxy Garcia MD Unavailable Bud Soto NP Unavailable Zoran Calvillo MD Unavailable [phone] Dashawn Santillan MD Unavailable [phone] Sanjuana Joel MD Unavailable Patricia Maldonado RN Unavailable Unavailabl e Encounter Details Date Type Department Care Team (Latest Contact Info) Description 09/06/2017 Orders Only [facility] CONVERSION Scanning, Provider Social History Tobacco Use Types Packs/Day Years Used Date Smoking Tobacco: Never Assessed Alcohol Use Standard Drinks/Week Comments No 0 (1 standard drink = 0.6 oz pur e alcohol) Comments Unknown Sex and Gender Information Value Date Recorded Sex Assigned at Not on file Legal Sex Female 11:07 PM TRUCKLOAD CHECKER Gender Identity Female 12/07/2022 1:51 PM TRUCKLOAD CHECKER Sexual Orientation Straight 01/15/2024 9: 23 AM CDT documented as of this encounter Plan of Treatment Not on file documented as of this encounter Procedures Procedure Name Priority Date/Time Associated Diagnosis Comments PULMONARY FUNCTION TEST (PFT) 09/06/2017 10:19 AM TRUCKLOAD CHECKER documented in this encounter Results * PULMONARY FUNCTION TEST (PFT) (09/06/2017 10:19 AM TRUCKLOAD CHECKER) Anatomical Region Laterality Modality PFT us Provider Scanning PFT ORDERABLES Final Result documented in this encounter Visit Diagnoses Not on filedocumented in this encounter Care Teams Change Lead Relationship Specialty Start Date End Date Gonzalez Do MD [address] [place], [place] [address]ANANYA LAWRENCE [address] [place] [address] PCP - General 01/11/17 01/28/21 Gonzalez Do MD [address] [place], [place] [address]ANANYA LAWRENCE [address] [place] [address] PCP - General 01/29/21 Gonzalez Do MD [address] [place], [place] [address]ANANYA LAWRENCE [address] [place] [address] 01/29/21 Chucho Banerjee MD [address] [facility] [address] [facility] [address] [place] [address] Referring Physician Transplant 03/25/18 Mo Olson MD [address] [facility] [address] [place] [address] Referring Physician Urology 03/25/18 Chadd Morton MD [address] [place] [address] Referring Physician Pulmonary Disease 03/25/18 Lance Boyce MD [address] [facility] [address] [place] [address] Referring Physician Obstetrics and Gynecology 04/12/18 Cristina Mehta MD [address] [facility] [address] [place] [address] Referring Physician Dermatology 10/19/18 Roxy Garcia MD [address] [address] Referring Physician Dermatology 10/19/18 Bud Soto NP [address] [address] Nurse Practitioner Nurse Practitioner 10/19/18 Zoran Calvillo MD [address] [address] Referring Physician Internal Medicine 10/19/18 Dashawn Santillan MD [address] [facility] [address] [place] [address] Consulting Physician Gastroenterology 10/19/18 Sanjuana Joel MD [address] [facility] [address] [place] [address] Referring Physician Neurology 10/22/20 Patricia Maldonado, RN Registered Nurse Pulmonary Disease 12/06/22 documented as of this encounter
--- OUTSIDE RECORDS SUMMARY | 2025-04-07 15:23 | XMS_ITS | Encounter Summary ---
Author Organization [facility] Address [address] [place] [address] Phone Care Team Providers Care Cloth Hauler Name Role Phone Gonzalez Do MD Primary Care Provider + Gonzalez Do MD Unavailable Chucho Banerjee MD Unavailable [phone] Mo Olson MD Unavailable [phone] Chadd Morton MD Unavailable [phone] Lance Boyce MD Unavailable Cristina Mehta MD Unavailable Roxy Garcia MD Unavailable [phone] Bud Soto NP Unavailable Zoran Calvillo MD Unavailable Dashawn Santillan MD Unavailable Sanjuana Joel MD Unavailable Patricia Maldonado RN Unavailable Unavailabl e Reason for Referral * (Routine) - Closed Specialty Diagnoses / Procedures Referred By Contac t Referred To Contact Diagnoses 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) Stage 3a chronic kidney disease (HCC) Procedures Pulmonary Function Test -[facility]FT [facility]- [facility]; DLCO; Spirometry Chadd Morton MD [address] [facility] [address] [place] [address] Phone: tel: fax: Referral ID Status Reason Start Date Expiration Date Visits Re quested Visits Authorized [id number] Closed 05/24/2022 06/23/2023 1 1 AL CARE WORKER Reason for Visit * (Routine) - Closed Specialty Diagnoses / Procedures Referred By Contac t Referred To Contact Diagnoses 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) Stage 3a chronic kidney disease (HCC) Procedures Pulmonary Function Test -[facility]FT [facility]- [facility]; DLCO; Spirometry Chadd Morton MD [address] [facility] [address] [place] [address] Phone: tel: fax: Referral ID Status Reason Start Date Expiration Date Visits Re quested Visits Authorized [id number] Closed 05/24/2022 06/23/2023 1 1 Encounter Details Date Type Department Care Team (Latest Contact Info) Description 12/06/2022 2:29 PM ANIMAL CARE WORKER Hospital Encounter [facility] PFT Lab [address] [facility] [address] [place] [address] Tuberous sclerosis syndrome (HCC); Pulmonary lymphangioleiomyomatosis (HCC); Stage 3a chronic kidney disease (HCC) Social History Tobacco Use Types Packs/Day [...] on file Legal Sex Female 11:07 PM ANIMAL CARE WORKER Gender Identity Female 12/07/2022 1:51 PM ANIMAL CARE WORKER Sexual Orientation Straight 01/15/2024 9: 23 AM CDT 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 Not on file Not on file documented as of this encounter Functional Status * Audit-C Score Answer Date of Assessment Author 0 02/25/2025 9:19 AM ARYANT Izaiah Murray RN * Question Answer Date [...] Diagnosis Comments PULMONARY FUNCTION TEST (PFT) Routine 12/06/2022 3:04 PM ANIMAL CARE WORKER 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) Stage 3a chronic kidney disease (HCC) documented in this encounter Results * Pulmonary Function Test - (12/06/2022 3:04 PM ANIMAL CARE WORKER) FVC PRE 4.22 L [facility] FVC %PRE PRED 114 % [facility] FEV1 PRE 3.36 L [facility] FEV1 %PRE PRED 115 % [facility] FEV1/FVC PRE 79.5 % [facility] DLCO PRE 21.6 ml/min/mmH g [facility] DLCO %PRE PRED 99 % [facility] Anatomical Region Laterality Modality PFT 12/06/2022 2:36 PM ANIMAL CARE WORKER Narrative 12/09/2022 3:48 PM ANIMAL CARE WORKER See PDF PFT performed at:->[facility] Procedure:->DLCO DLCO:->Spirometry Chadd Morton MD PFT ORDERABLES Final Result documented in this encounter Visit Diagnoses Diagnosis Tuberous sclerosis syndrome (HCC) Tuberous sclerosis Pulmonary lymphangioleiomyomatosis (HCC) Stage 3a chronic kidney disease (HCC) documented in this encounter Care Teams Cloth Hauler Relationship Specialty Start Date End Date Gonzalez Do MD [facility] [address] [place] [address] PCP - General 01/29/21 Gonzalez Do MD [facility] [address] [place] [address] 01/29/21 Chucho Banerjee MD [address] [place] [address] Referring Physician Transplant 03/25/18 Mo Olson MD [address] [place] [address] Referring Physician Urology 03/25/18 Chadd Morton MD [address] [place] [address] Referring Physician Pulmonary Disease 03/25/18 Lance Boyce MD [address] [place] [address] Referring Physician Obstetrics and Gynecology 04/12/18 Cristina Mehta MD [address] [facility] [address] [place] [address] Referring Physician Dermatology 10/19/18 Roxy Garcia MD [address] [facility] [address] [place] [address] Referring Physician Dermatology 10/19/18 Bud Soto NP [address] [facility] [address] [place] [address] Nurse Practitioner Nurse Practitioner 10/19/18 Zoran Calvillo MD [address] [facility] [address] [place] [address] Referring Physician Internal Medicine 10/19/18 Dashawn Santillan MD [address] [facility] [address] [place] [address] Consulting Physician Gastroenterology 10/19/18 Sanjuana Joel MD [address] [facility] [address] [place] [address] Referring Physician Neurology 10/22/20 Patricia Maldonado RN Registered Nurse Pulmonary Disease 12/06/22 documented as of this encounter
--- OUTSIDE RECORDS SUMMARY | 2025-04-07 15:23 | XMS_ITS | Encounter Summary ---
Author Organization [facility] Address [address] [place] [address] Phone Care Team Providers Care Cylinder Handler Name Role Phone Gonzalez Do MD Primary Care Provider + Gonzalez Do MD Primary Care Provider + Gonzalez Do MD Unavailable Chucho Banerjee MD Unavailable [phone] Mo Olson MD Unavailable [phone] Chadd Morton MD Unavailable [phone] Lance Boyce MD Unavailable Cristina Mehta MD Unavailable Roxy Garcia MD Unavailable [phone] Bud Soto NP Unavailable Zoran Calvillo MD Unavailable Dashawn Santillan MD Unavailable [phone] Sanjuana Joel MD Unavailable Patricia Maldonado RN Unavailable Unavailabl e Encounter Details Date Type Department Care Team (Latest Contact Info) Description 08/25/2017 Orders Only [facility] CONVERSION Scanning, Provider Social History Tobacco Use Types Packs/Day Years Used Date Smoking Tobacco: Never Assessed Alcohol Use Standard Drinks/Week Comments No 0 (1 standard drink = 0.6 oz pur e alcohol) Comments Unknown Sex and Gender Information Value Date Recorded Sex Assigned at Not on file Legal Sex Female 11:07 PM DIRECTOR OF TRAINING Gender Identity Female 12/07/2022 1:51 PM DIRECTOR OF TRAINING Sexual Orientation Straight 01/15/2024 9: 23 AM CDT documented as of this encounter Plan of Treatment Not on file documented as of this encounter Procedures Procedure Name Priority Date/Time Associated Diagnosis Comments VASCULAR LABORATORY REPORT 08/25/2017 1:01 PM DIRECTOR OF TRAINING documented in this encounter Results * VASCULAR LABORATORY REPORT (08/25/2017 1:01 PM DIRECTOR OF TRAINING) Anatomical Region Laterality Modality Ultrasound us Provider Scanning CV VASCULAR PROCEDURES Final R esult documented in this encounter Visit Diagnoses Not on filedocumented in this encounter Care Teams Cylinder Handler Relationship Specialty Start Date End Date Gonzalez Do MD [address] [place], [place] [address]ANANYA LAWRENCE [address] [place] [address] PCP - General 01/11/17 01/28/21 Gonzalez Do MD [address] [place], [place] [address]ANANYA LAWRENCE [address] [place] [address] PCP - General 01/29/21 Gonzalez Do MD [address] [place], [place] [address]ANANYA LAWRENCE [address] [place] [address] 01/29/21 Chucho Banerjee MD [address] [address] Referring Physician Transplant 03/25/18 Mo Olson MD [address] [place] [address] Referring Physician Urology 03/25/18 Chadd Morton MD [address] [place] [address] Referring Physician Pulmonary Disease 03/25/18 Lance Boyce MD [address] [facility] [address] [place] [address] Referring Physician Obstetrics and Gynecology 04/12/18 Cristina Mehta MD [address] [place] [address] Referring Physician Dermatology 10/19/18 Roxy Garcia MD [address] [address] Referring Physician Dermatology 10/19/18 Bud Soto NP [address] [address] Nurse Practitioner Nurse Practitioner 10/19/18 Zoran Calvillo MD [address] [address] Referring Physician Internal Medicine 10/19/18 Dashawn Santillan MD [address] [facility] [address] [place] [address] Consulting Physician Gastroenterology 10/19/18 Sanjuana Joel MD [address] [address] Referring Physician Neurology 10/22/20 Patricia Maldonado, RN Registered Nurse Pulmonary Disease 12/06/22 documented as of this encounter
--- OUTSIDE RECORDS SUMMARY | 2025-04-07 15:23 | XMS_ITS | Clinical Summary ---
Author Organization [facility] Healthcare Address [address] [place] [address] Care Team Providers Care Visiting Housekeeper Name Role Phone Gonzalez Do MD Primary Care Provider + Gonzalez Do MD Unavailable [phone] Chucho Banerjee MD Unavailable [phone] Mo Olson MD Unavailable Chadd Morton MD Unavailable [phone] Lance Boyce MD Unavailable Cristina Mehta MD Unavailable Roxy Garcia MD Unavailable [phone] Bud Soto NP Unavailable Zoran Calvillo MD Unavailable [phone] Dashawn Santillan MD Unavailable Sanjuana Joel MD Unavailable Patricia Maldonado RN Unavailable Unavailabl e Allergies Active Allergy Reactions Criticality Noted Date Comments Iodinated Contrast Media Anaphylaxis,Swelling High 07/31/2007 CT dye anaphylaxis ( pt able to take MRI dye) Iodine Anaphylaxis High 07/31/2007 CT dye anaphylaxis (pt able to take MRI dye) Ioversol Anaphylaxis High Medications acidophilus-pec tin, citrus 100 million cell-10 mg capsuleIndicati ons:for supplement Take 1 capsule by mouth silk soaker before breakfast. 6 Active multivitamin tabletIndicatio ns:Vitamin [...] (11/29/2018): Added automatically from request for surgery [id number] Edema 04/12/2018 Overview (04/16/2018): Echo 08/25 nl [...] 10/24/2012 Overview (08/11/2020): Pulmonary, renal, hepatic, bone, doctor of audiology and possible cardiac involvement Pulmonary, renal, hepatic, bone, doctor of audiology and possible cardiac involvement Assessment & Plan [...] genetics (Dr. Huston) for genetic testing. Several companies offer TSC panels (TSC1 and TSC2) genes. Resolved Problems Problem Noted Date Diagnosed Date Resolved Date Family history of eosinophilic esophagitis 07/18/2024 07/18/2024 Overweight 01/29/2022 04/08/2024 Polyneuropathy 03/04/2020 07/18/2024 Eosinophilic esophagitis 09/11/201707/2024 Encounters Date Type Department Care Team Description 5 2:00 PM CDT Office Visit [facility] Epilepsy [address] [facility] 6th [place] [address] [place] [address] Lucas Allen MD Tuberous sclerosis syndrome (HCC) (Primary Dx) 5 Telephone [facility] Scheduling [address] [place] [address] Heather Ivy RMA Scheduling Appointments 5 Documentation [facility] Pediatric Neurology [address] [facility] [address] [place] [address] Melia Carmona RN 5 1:20 PM CDT Office Visit [facility] Urology [address] [facility] [address] Office [address] [place] [address] Carole Aiken NP Encounter for removal of ureteral stent (Primary Dx) 5 10:50 AM CDT - 5 12:50 PM CDT Surgery [facility] Operating Room [address] [place] [address] Declan Ding MD RIGHT URETEROSCOPY - Calculus 5 10:08 AM CDT Anesthesia Event [facility] Operating Room [address] [place] [address] Luan Mathews MD Meiners, Alea Marie, NP 5 8:56 AM CDT - 5 1:31 PM CDT Hospital Encounter [facility] Operating Room [address] [place] [place] [address] Declan Ding MD Kidney stone Discharge Disposition: Discharge to home or self care 5 Telephone [facility] [address] [facility] [address] [place] [phone] Gonzalez Do MD 5 10:00 AM CDT Telemedicine [facility] [address] [facility] Medical Office Building [address] [place] [address] Declan Ding MD Kidney stone (Primary Dx) 5 Telephone [facility] [address] [facility] [address] Office [address] [place] [address] Mariella Flynn CMA 5 Telephone [facility] Urology [address] [facility] 11th [place] [address] [place] [address] Raghu Betancourt 5 Results Follow-Up Nephrology Chucho Banerjee MD CT Abdomen Pelvis WO Contrast 5 2:30 PM CDT Office Visit [facility] [address] [facility] [address] [place] [phone] Marlene Ramírez, JAME Migraine without aura and without status migrainosus, not intractable (Primary Dx); Primary hypertension; Kidney stone 5 12:55 PM CDT - 5 11:59 PM CDT Hospital Encounter [facility] Imaging [address] [place] [address] Stage 3 chronic kidney disease, unspecified whether stage 3a or 3b CKD (HCC) Discharge Disposition: Discharge to home or self care 5 Orders Only [facility] Pulmonary [address] [facility] 8th [place] [address] [place] [address] Chadd Morton MD Tuberous sclerosis syndrome (HCC) (Primary Dx); Cystic-bullous disease of lung; Pulmonary lymphangioleiomyomatosis (HCC) 5 2:30 PM CDT Office Visit [facility] Pulmonary [address] [facility] Office Building [address] [place] [address] Chadd Morton MD Obstructive sleep apnea syndrome (Primary Dx); Tuberous sclerosis syndrome (HCC); Fingernail abnormalities; Cystic-bullous disease of lung; High risk medication use 5 1:20 PM CDT - 5 11:59 PM CDT Hospital Encounter [facility] PFT Lab [address] [facility] Building [address] [place] [address] Pulmonary lymphangioleiomyomatosis (HCC); Tuberous sclerosis syndrome (HCC) Discharge Disposition: Discharge to home or self care 5 Orders Only [facility] Pulmonary [address] [facility] 8th [place] [address] [place] [address] Chadd Morton MD from Last 3 Months Immunizations Immunization Administration Dates Next Due Influenza, [...] PPV23 09/19/2017 Tdap 10/22/2019,03/19/2007,10/09/2006 ZOSTER Recombinant 01/26/2022,11/09/2021 Surgical History Surgery Date Site/Laterality Comments SHOULDER SURGERY 10/09/2009 - 10/08/2010 Shoulder Surgery OTHER SURGICAL HISTORY 10/09/2002 - 10/08/2003 Tumor removed on kidney SECTION 10/09/2002 - 10/08/2003 section NASAL SEPTUM SURGERY 10/09/2008 - 10/08/2009 Nasal Septal Deviation Repair - (Added by TW Conv) MT SALPINGO-OOPHORECTOMY COMPL/PRTL UNI/BI SPX 10/09/2014 - 10/08/2015 Salpingo-oophorectomy Right Side - (Added by TW Conv) DILATION AND CURETTAGE OF UTERUS 10/09/1999 - 10/08/2000 MYOMECTOMY CHOLECYSTECTOMY 10/09/2019 - 10/08/2020 UMBILICAL HERNIA REPAIR 10/09/2019 - 10/08/2020 CYSTOSCOPY W/ URETERAL STENT PLACEMENT 01/26/2024 Right and Laser holmium ORIF WRIST FRACTURE 08/09/2024 - 09/07/2024 Right Medical History Medical History Date Comments Hx Other Medical Tuberoiu sclero sis Hx Other Medical tumors and cyst s on liver and kidney Hx Other Medical Endometrosis. Hx Other Medical fibroid removed . 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 Bud Soto, last seen 09/07/18) at [facility] & nuclear equipment operator (Zoran Calvillo) at [facility]. Last MRI of pituitary and brain at [facility] on 09/07/2018 shows unchanged lesion. Acquired cyst of kidney Kidney c ysts - Dr. Alcantara (Added by TW Conv) Noninflammatory disorder of ovary, fallopian tube and broad ligament, unspecified Ovarian mass - 9 cm septated left adnexal cyst seen on CT 02/21 (Added by TW Conv) Excessive and frequent menst ruation with irregular cycle Menometrorrhagia - Uterine f ibroids (Added by TW Conv) Personal history of urinary infection History of urinary tract infection - 02/21. Cx negative (Added by TW Conv) Nail dystrophy Onychodystrophy - (Added by TW Conv) Other specified postprocedural states H/O colonoscopy - Dr. Santillan. 07/24. Small intestine neg for Sprue. Esophagus with acute inflammation and focal erosion. No Osman's. Colon - polypoid mucosa with prominent lympoid aggregate (Added by TW Conv) Other abnormal tumor markers Safia vated CA 19-9 level - Abd CT neg. Seen by Dr. Santillan - unclear significance (Added by TW Conv) Sleep apnea Renal insufficiency Overweight 01/29/2022 Family History Medical History Relation Name Comments Hypertension Father Hypertension; / Family history of hypertension - (Added by TW Conv) Depression Mother Family history of depression - (Added by TW Conv) Hypertension Mother Hypertension; / Family history of hypertension - (Added by TW Conv) Other Other 1 No family histo ry of Diabetes mellitus; Other Other 2 No family histo ry of Hypertension; Depression Other 3 Family history of depression - (Added by TW Conv) Ovarian cancer Other 4 Family histor y of ovarian cancer - (Added by TW Conv) Seizures Other 5 Seizure - (Adde d by TW Conv) Anesthesia problems Neg Hx Breast cancer Neg Hx Colon cancer Neg Hx Relation Name Status Comments Father Mother Other 1 Other 2 Other 3 Other 4 Other 5 Social History Tobacco Use Types Packs/Day Years [...] on file Legal Sex Female 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 Gender Identity Female 12/07/2022 1:51 PM AUTO BODY WORKER Sexual Orientation Straight 01/15/2024 9: 23 AM CDT 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 Not on file Not on file Obstetrics History Para Term AB IAB SAB Ectopic Multiple Livin g Live Births 3 2 1 1 1 1 1 2 2 Date Outcome GA Total Labor Labor/2nd/3rd Weight Sex Type Anes PTL Mora A1 A5 Name Clin Term 1999 SAB 2002 F CS-Un spec Living 2002 M CS-Un spec Living Last Filed Vital Signs Vital Sign Reading [...] 03/19/2025 1:55 PM CDT Plan of Treatment Health Maintenance Due Date Last Done Comments Hepatitis B Screening 01/26/1986 Covid-19 Vaccine (3 - Pfizer risk series) 12/18/2020 11/20/2020, 10/30/2020 Breast Cancer Screening-Mammogram 07/10/2025 07/10/2024, 06/09/2023, 02/28/2022, Additional history exists Depression Screening 07/18/2025 07/18/2024, 07/17/2023, 01/31/2022, Additional history exists Regular Well Visit/Exam 18-64 07/18/2025, 04/10/2024, 07/17/2023, Additional history exists Colon Cancer Screening-Colonoscopy 10/09/2025 10/09/2015 Cervical Cancer Screening 06/09/2027 06/09/2022, 10/2015 DTaP/Tdap/Td Vaccine (4 - Td or Tdap) 10/22/2029 10/22/2019, 03/19/2007, 10/09/2006 Colon Cancer Screening-CT Colonography Discontinued 10/09/2015 Colon Cancer Screening-DNA Stool Discontinued 10/09/19 16 Colon Cancer Screening-FIT Discontinued 10/09/2015 Colon Cancer Screening-Sigmoidoscopy Discontinued 10/09/2015 Pneumococcal vaccine <65 Completed 11/30/2021, 09/08 Zoster Vaccine Completed 01/26/2022, 11/09/2021 Hepatitis C Screening Completed 03/15/2022, 020 Influenza Vaccine Completed 07/18/2024, , 07/08/2020, Additional history exists Medical Devices Implanted Type [employer] District Supervisor Device Identifier Shelf Expiration Date Model / Serial / Lot Ltclavicle Fx,Ortho Instrumentation ,Plate/Screws Implanted:01/28 (Quantity not on file) Screw Left: Clavicle Explanted Type [employer] District Supervisor Device Identifier Shelf Expiration Date Model / Serial / Lot [employer] Universa 6fr 28cm Firm Positioner Monofilament Tether Stent [id number] - [id number] Implanted:Qty: 1 on 01/26/2024 at [facility] Explanted:Qty: 1 on 02/25/2025 by Declan Ding MD at [facility] Right: Ureter [employer] 07/21/2026 [id number] / / [id number] [employer] Universa 6fr 28cm Firm Positioner Monofilament Tether Stent [id number] - [id number] Implanted:Qty: 1 on 02/25/2025 at [facility] Explanted:Qty: 1 on 03/04/2025 by Carole Aiken NP Right: Ureter [employer] 11/13/2027 [id number] / / [id number] Procedures Procedure Name Priority Date/Time Associated Diagnosis Comments FL FLUOROSCOPY < 1 HOUR IP Routine 02/25/2025 12:24 PM CDT SURGICAL PATHOLOGY Routine 02/25/2025 10:37 AM CDT Kidney stone MT AN PROCEDURE PLACEHOLDER Routine 02/25/2025 10:35 AM CDT MT AN ELECTIVE SUPRAGLOTTIC AIRWAY Routine 02/25/2025 10:35 [...] sclerosis syndrome (HCC) SCREENING MAMMOGRAM BILATERAL W RMOEL Schedule Routine, Read Routine (OP Routine) 07/10/2024 [...] Analysis) 02/25/2025 10:37 AM CDT Narrative PATHOLOGY [facility] - 02/26/2025 2:40 PM CDT EPIC results best viewed via link to PDF [facility] Radha [facility] [place] [address] Note to Patients: This report may contain [...] Gender: F : 1970 (Age: 55) Address: [address] [place], [place] [id number] Hospital #: [id number] Taken:02/25/2025 Received:02/25/2025 Reported: 02/26/2025 Patient Type: [facility] SAME Client [facility] Service: Surgery Location: Physician(s): Germain Fernandez M.D. Diagnosis: Right kidney, stone, removal - Lithiasis (gross examination only, sent for chemical analysis) [facility]/02/26/2025 10:53 By this signature, I attest that [...] slides(and/or other material). Addenda/Procedures Addendum Ordered:03/24/2025Status:Signed OutAddendum Complete:03/24/2025y:Hernna Dallas M.D., PH.D.Addendum Signed Out:04/01/2025 Addendum Diagnosis [...] interpretation for this case was performed at [facility], Department of Surgical Pathology, [address] [facility], [place] [id number], [place] [id number] CLIA # [id number] The performance characteristics of some immunohistochemical stains, fluorescence in-situ hybridization tests and immunophenotyping by flow cytometry cited in this report (if any) were determined by the Surgical Pathology and Flow Cytometry Departments at [facility] as part of an ongoing software quality assurance engineer program and in compliance with federally [...] Surgical Pathology and Flow Cytometry Departments of [facility]. It has not been cleared or approved by the U. S. Food and Drug Administration. IMAGES AND SCANNED DOCUMENTS, IF INCLUDED, ONLY VIEWABLE IN PDF VERSION OF REPORT Declan Ding MD LAB PATHOLOGY ORDERA BLES Final Result PATHOLOGY [facility] [phone] * MT AN ELECTIVE SUPRAGLOTTIC AIRWAY, MT AN PROCEDURE PLACEHOLDER (02/25/2025 10:35 AM CDT) [...] of attempts: 1 Ventilation between attempts: none Result [facility] Luan Mathews MD ANESTHESIA ORDERABLES Fin al Result * Urine culture Urine, clean voided (02/14/2025 11:16 AM CDT) Urine culture [employer] Rodriguez Comment: CULTURE, URINE, ROUTINE Micro Number: [id number] Test Status: Final Specimen Source: Urine, clean [...] MICROBIOLOGY - G ENERAL ORDERABLES Final Result [facility] [address] [place] [address] * CT Abdomen Pelvis WO Contrast (01/13/2025 [...] hydronephrosis. Additional nonobstructing renal calculi. No hydroureteronephrosis. [place] in the left retroperitoneum Large small bowel [...] by: Collette Quiñones M.D. Chucho Banerjee MD IM CT PROCEDURES Final Result * Pulmonary Function Test - (01/07/2025 1:49 PM CDT) FVC PRE 4.47 L [facility] FVC %PRE PRED 130 % [facility] FEV1 PRE 3.44 L [facility] FEV1 %PRE PRED 126 % [facility] FEV1/FVC PRE 77.1 % [facility] Anatomical Region Laterality Modality PFT 01/07/2025 1:26 PM CDT Narrative 01/09/2025 9:58 AM CDT Table formatting from the original result was not included. [facility] Division of Pulmonary & Critical Care Medicine [address] [place] [address]; [place] [address]; [place] [address]; [phone] Pulmonary Function Laboratory Pulmonary Stress Test Simple/Oxygen [...] Work [distance (m) x body wt (kg)]: 88503 kg.m (normal >60,000kg.m) Oxygen required to maintain [...] with the written final report. PFT performed at:->[facility] Adult PFT Lab- [facility] Procedure:->Spirometry Procedure:->Oxygen Assessment Titration Pulmonary Function Test [...] and %HbO2 is age dependent. However, the [facility] Pulmonary Function Laboratory defines hypoxemia as a PaO2 <56 mm Hg or a %HbO2 <89%. Starting on October of 2024 the [facility] Pulmonary Function Laboratory utilizes race neutral [...] age 40, based on guidelines of the [employer] (ACR Practice Parameter for the Performance of Screening and Diagnostic Mammography) and [employer]. For women [...] nal Result * Pap Smear (06/09/2022) 06/09/2022 Historical Provider LAB PATHOLOGY ORDERABLES Final Result * [...] a test for HCV RNA (test code 67223) is suggested. For additional information please refer to http://education.bizHive/faq/APY79f0 (This link is being provided for informational/ educational purposes only.) Blood specimen (specimen) 03/15/2022 8:49 AM CDT 03/15/2022 8:51 AM CDT Narrative [facility] - 03/16/2022 11:39 PM CDT FASTING:YES FASTING: YES Gonzalez Do MD LAB MICROBIOLOGY - GENER AL ORDERABLES Final Result [facility] [address] [place] [address] * COLONOSCOPY (10/09/2015) Pathologist [facility] HM Colonoscopy Normal Historical Provider HEALTH MAINTENANCE Final Result from Last 3 Months or Most Recently Relevant to Health Maintenance Insurance [facility] ACCESS CHOICE [facility] ANTHEM ACCESS CHOICE BLUE ACC CHOICE OOS ANTHEM ACCESS CHOICE ANTHEM ACCESS CHOICE Care Teams Visiting Housekeeper Relationship Specialty Start Date End Date Gonzalez Do MD [address] [place], [place] [address]ANANYA LAWRENCE [address] [place] [address] PCP - General 01/29/21 Gonzalez Do MD [address] [place], [place] [address]ANANYA LAWRENCE [address] [place] [address] 01/29/21 Chucho Banerjee MD [id number] [place] [address] Referring Physician Transplant 03/25/18 Mo Olson MD [address] [place] [address] Referring Physician Urology 03/25/18 Chadd Morton MD [address] [place] [address] Referring Physician Pulmonary Disease 03/25/18 Lance Boyce MD [address] [place] [address] Referring Physician Obstetrics and Gynecology 04/12/18 Cristina Mehta MD [address] [place] [address] Referring Physician Dermatology 10/19/18 Roxy Garcia MD [address] [place] [address] Referring Physician Dermatology 10/19/18 Bud Soto NP [address] [place] [address] Nurse Practitioner Nurse Practitioner 10/19/18 Zoran Calvillo MD [address] [place] [address] Referring Physician Internal Medicine 10/19/18 Dashawn Santillan MD [address] [place] [address] Consulting Physician Gastroenterology 10/19/18 Sanjuana Joel MD [address] [place] [address] Referring Physician Neurology 10/22/20 Patricia Maldonado, RN Registered Nurse Pulmonary Disease 12/06/22
--- OUTSIDE RECORDS SUMMARY | 2025-04-07 15:23 | XMS_ITS | Continuity of Care Document ---
Author Organization [facility] Address [address] [place] [address] [place] [address] Phone Care Team Providers Care Skate Maker Name Role Phone Cody Maldonado MD Unavailable Unavailable Procedures Procedure Date Office/outpatient Visit, Est Office Consultation Advance Directives Directive Yes / No Effective Date File Name No Information Encounters Encounter Description Practice Location Reason(s) For Visit Diagnoses Date Provider Providers Copied on Encounter Office/outpat ient Visit, Est [facility], [address] [place] [address] [address], [place], [place], [id number], tel:[phone] SEC [place] Professional No Information Jan-0 [address] [facility] [place], [id number], [place]. tel:[phone] Referring Provider: Jairon Azar MD, [address], [place], [address]. tel:[phone] Office Consultation [facility], [address] [place] [address] [address], [place], [place], [id number], tel:[phone] SEC Myron AKHTAR Professional No Information [address] [facility] [place], [id number], [place]. tel:[phone] Referring Provider: Jairon Azar MD, [address], [place], [address]. tel:[phone] Family History Family Member Type Diagnosis Age At Onset No Information Payers Payer name Insurance type Covered democrat ID Authoriza tion(s) No Information Social History Type Description Quantity Date Captured Comments Sex Female Smoking Status No Information Chief Complaint And Reason For Visit No Information Reason For Referral Reason For Referral No Information History Of Present Illness Encounter Date Complaint History Of Prese nt Illness No Information Functional Status Date Functional Assessmen t No Information Instructions Date Instruction Additional Infor mation No Information Assessments Type Assessment Date No Information Patient Care Teams Name Effective Dates (start - stop) Status Members No Information
--- OUTSIDE RECORDS SUMMARY | 2025-04-07 15:28 | XMS_ITS | Clinical Summary ---
Author Organization [facility] Address [address] [place] [address] Care Team Providers Care Rigger Up Name Role Phone Gonzalez Do MD Primary Care Provider [phone] Source Comments [facility],non-owned Affiliates and Associated Physician Practices is amultiple site organization consisting of ambulatory clinics and hospital sitesin [place], [place], [place] and [place]. This disclosure is being madepursuant to the Care Everywhere program and may not contain all informatio navailable regarding this patient. Last updated 18.[facility] Allergies Active Allergy Reactions Criticality Noted Date Comments Contrast-Iodinated Agents For Ct/Other Swelling 12/10/2019 Iodine Anaphylaxis High 07/31/2007 Iohexol Swelling Low 07/25/2012 Medications * This document contains information received from the source organization and may not represent a complete record from that organization. * Be aware that medications may not be up to date on this document. Alwaysverify current medications with the patient. verapamil CR (ISOPTIN-SR) 180 MG tablet Take 1 (one) tablet by mouth 5 8 Active salmeterol (SEREVENT DISKUS) 50 MCG/DOSE diskus inhaler Inhale 1 (one) puff by mouth 8 Active labetalol (NORMODYNE; TRANDATE) 200 MG tablet 8 Active norethindrone (AYGESTIN) 5 MG tablet TK 1 T PO D 3 8 Active omeprazole (PRILOSEC) 20 MG capsule TK 1 C PO D 5 8 Active Albuterol Sulfate (PROAIR HFA IN) Active Calcium Carbonate 500 MG take 1 tab daily, for supplement 6 Active Cyanocobalamin 3000 MCG Dissolve 1 tablet under the tongue once daily Active fluticasone propionate (FLONASE) 50 MCG/ACT nasal spray Canmer 1 (one) spray into the nose 2 times daily 6 Active Multiple Vitamin (MULTI VITAMIN DAILY PO) Take 1 tablet by mouth once daily Active vitamin D3 (CHOLECALCIFEROL ) 1000 units tablet Take 1 (one) tablet by mouth once daily Active sirolimus (RAPAMUNE) 2 MG tablet 1 (one) tablet once daily Active ferrous sulfate 325 (65 FE) MG tablet Take 1 (one) tablet by mouth once daily Active topiramate (Topamax) 50 MG tabletIndication s:Migraine without aura and without status migrainosus, not intractable,Poly neuropathy TAKE 1 TABLET IN THE MORNING AND 2 TABLETS (100 MG) AT NIGHT 270 tablet 3 3 Active amitriptyline (Elavil) 25 MG tabletIndication s:Migraine without aura and without status migrainosus, not intractable,Poly neuropathy TAKE 2 TABLETS AT NIGHT FOR LEG PAIN 180 tablet 3 3 Active Addyi 100 MG TABS Take 100 mg by mouth once daily 4 04/10/20 25 Active HYDROcodone-acet aminophen ([place]) 5-325 MG tabletIndication s:Other closed fracture of distal end of right radius, initial encounter,Closed fracture of distal end of right ulna, unspecified fracture morphology, initial encounter Take 1 (one) tablet by mouth every 6 hours as needed for Pain 12 tablet 4 Active Active Problems Problem Noted Date Diagnosed Date Dyslipidemia 10/22/2020 Polyneuropathy 03/04/2020 SOB (shortness of breath) 03/04/2020 BMI 33.0-33.9,adult 10/22/2019 Prediabetes 10/21/2019 Fingernail abnormalities 11/29/2018 Overview (03/04/2020): Overview: Added automatically from request for surgery [id number] Edema 04/12/2018 Overview (03/04/2020): Overview: Echo 08/25 nl lvf Lymphedema 04/12/2018 Cobalamin deficiency 09/19/2017 Eosinophilic esophagitis 09/11/2017 Renal osteodystrophy 07/17/2017 Stage 3 chronic kidney disease 07/17/2017 Leg swelling 11/16/2016 Numbness in both legs 11/16/2016 Endometriosis 04/08/2016 Abdominal pain 03/09/2016 Overview (03/04/2020): Overview: [place] related to endometriosis and adhesions Asthma 02/24/2016 Overview (03/04/2020): Overview: pfts 08/25 nl Anemia 02/23/2016 Arteriosclerotic vascular disease 02/23/2016 Overview (03/04/2020): Overview: Renal/hepatic angiomyolipomas Hay fever 02/15/2016 Chronic sinusitis 01/04/2016 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 (AF LURIA, FLUZONE TRIVALENT; 6MO+) (IIV3) 09/08/2014 FLU VACCINE TRI IIV3 SPLIT PF IM (FLUVIRIN) 09/09 INFLUENZA VACCINE 07/08/2020,07/17/2018 INFLUENZA VACCINE, CELL CULT URE, QUADR. (FLUCELVAX QUADRIVALENT; 6MO+) (CCIIV4) 09/03/2019,07/17/2018 TDAP (7yrs+) 10/22/2019,03/19/2007 Family History Medical History Relation Name Comments Hypertension Father Hypertension Mother Relation Name Status Comments Father Alive Mother Alive Social History Tobacco Use Types Packs/Day Years Used Date Smoking Tobacco: Never Smokeless Tobacco: Never Alcohol Use Standard Drinks/Week Comments No 0 (1 standard drink = 0.6 oz pur e alcohol) PHQ-2 Answer Date Recorded Patient Health Questionnaire-2 Score 5 08/29/2024 Comments No Sex and Gender Information Value Date Recorded Sex Assigned at Not on file Legal Sex Female 6:22 AM CORPORATE DIRECTOR OF PHARMACY Gender Identity Not on file Sexual Orientation Not on file Last Filed Vital Signs Vital Sign Reading Time Taken Comments Blood Pressure 132/55 08/27/2024 11:51 AM CORPORATE DIRECTOR OF PHARMACY Pulse 74 08/27/2024 11:51 AM CORPORATE DIRECTOR OF PHARMACY Temperature 36.7 C (98.1 F) 08/27/2024 11:51 AM CORPORATE DIRECTOR OF PHARMACY Respiratory Rate 18 08/27/2024 11:51 AM CORPORATE DIRECTOR OF PHARMACY Oxygen Saturation 100% 08/27/2024 11:51 AM CORPORATE DIRECTOR OF PHARMACY Inhaled Oxygen Concentration - - Weight 64 kg (141 lb) 08/29/2024 1:47 PM CORPORATE DIRECTOR OF PHARMACY Height 170.2 cm (5' 7) 08/29/2024 1:47 PM CORPORATE DIRECTOR OF PHARMACY Body Mass Index 22.08 08/29/2024 1:47 PM CORPORATE DIRECTOR OF PHARMACY Plan of Treatment Health Maintenance Due Date Last Done Comments COLOGUARD (AGES 45-75) - COLON CA SCREENING 1968 COLON MONITORING 1968 COLONOSCOPY - COLON CA SCREENING 1968 CT COLONOGRAPHY - COLON CA SCREENING 1970 Colorectal Cancer Screening 1970 FIT - COLON CA SCREENING 1968 FLEX SIG - COLON CA SCREENING 1968 LIPID TESTING 1968 HIV SCREENING 01/26/1983 HEPATITIS C SCREENING 01/22/1986 HEPATITIS B VACCINE (1 of 3 - 19+ 3-dose series) 01/26/1987 PNEUMOCOCCAL VACCINE 50+ (1 of 2 - PCV) 01/26/1987 ZOSTER VACCINE (1 of 2) 01/26/1987 PAP SMEAR 01/26/1989 COVID-19 VACCINE ( season) 2024 10/31/2022, 04/21/2022, 11/20/2020, Additional history exists DEPRESSION SCREENING 10/09/2024 MAMMOGRAM 07/10/2026 07/10/2024, 11/2023, 06/09/2023, Additional history exists DTAP/TDAP/TD VACCINES (3 - Td or Tdap) 10/22/2029 10/22/2019, 03/19/2007 INFLUENZA VACCINE Completed 07/18/2024, , 10/31/2022, Additional history exists HIB VACCINE Aged Out No longer eligi ble based on patient's age to complete this topic HPV VACCINE Aged Out No longer eligi ble based on patient's age to complete this topic MENINGOCOCCAL (Group B) VACCINE SHARED DECISION-MAKING Aged Out No longer eligible based on patient's age to complete this topic MENINGOCOCCAL GROUPS A/C/Y/W VACCINE Aged Out No longer eligible based on patient's age to complete this topic Insurance ANTHEM ANTHEM Care Teams Rigger Up Relationship Specialty Start Date End Date Gonzalez Do MD [facility] [address] Sara LAWRENCE [address] [place] [id number] PCP - General 05/22/18
--- OUTSIDE RECORDS SUMMARY | 2025-04-07 15:28 | XMS_ITS | Continuity of Care Document ---
Author Organization [facility] Address [address] [place] [address] [place] [address] Phone Care Team Providers Care Mapping Pilot Name Role Phone Cody Maldonado MD Unavailable Unavailable Procedures Procedure Date Office/outpatient Visit, Est Office Consultation Advance Directives Directive Yes / No Effective Date File Name No Information Encounters Encounter Description Practice Location Reason(s) For Visit Diagnoses Date Provider Providers Copied on Encounter Office/outpat ient Visit, Est [facility], [address] [place] [address] [address], [place], [place], [id number], tel:[phone] SEC Myron [facility] Professional No Information Jan-0 [address] [facility] [place], [id number], [place]. tel:[phone] Referring Provider: Jairon Azar MD, [address], [place], [address]. tel:[phone] Office Consultation [facility], [address] [place] [address] [address], [place], [place], [id number], tel:[phone] SEC Myron AKHTAR Professional No Information [address] [facility] [place], [place], [id number], [place]. tel:[phone] Referring Provider: Jairon Azar MD, [address], [place], [address]. tel:[phone] Family History Family Member Type Diagnosis Age [...]
--- NOTE | 2025-04-07 15:29 | ED_ITS ---
HPI - Extremity Injury (Upper) General Chief Complaint: Extremity Injury, Upper Stated Complaint: fall/ wrist swelling Time Seen by Provider: 04/07/25 15:30 Source: patient Mode of arrival: ambulatory Limitations: no limitations History of Present Illness HPI narrative: 55 y/o female presented for complaint of right wrist pain and swelling following injury today. She states while at work she tripped, and caught herself with the hand behind her. Pt continued to work. Endorses decreased ROM due to pain. Denies deformity, bruising, numbness, tingling or weakness. Took ibuprofen this morning. Pt states she broke the right wrist last year, and is concerned for damage to the hardware. Related Data Home Medications ?Medication ?Instructions ?Recorded ?Confirmed ?Last Taken ?Type amitriptyline 25 mg tablet 25 mg PO HS 08/11/20 06/10/23 08/10/20 History labetalol 200 mg tablet 200 mg PO Q12H 08/11/20 06/10/23 08/11/20 History topiramate 50 mg tablet (Topamax) 50 mg PO QAM 08/11/20 06/10/23 08/11/20 History sirolimus 1 mg tablet 1 mg PO BID 03/12/21 06/10/23 Unknown History Allergies Allergy/AdvReac Type Severity Reaction Status Date / Time iodine Allergy Severe Swelling Verified 04/07/25 15:37 of Lip/Tongue/Throat Review of Systems Review of Systems: CONSTITUTIONAL: Denies body aches, fever, chills EYES: Denies visual changes ENT: Denies rhinorrhea, congestion CARDIOVASCULAR: Denies chest pain, palpitations, or edema. RESPIRATORY: Denies cough or dyspnea. SKIN: Denies wounds. MUSCULOSKELETAL: reports right wrist pain NEUROLOGIC: Denies headache, numbness, tingling, or weakness. All systems reviewed & are unremarkable except as noted in HPI and below PMFSH Past Medical History Medical History Bilateral nephrolithiasis (~07/2020) Chronic kidney disease, stage 3 Endometriosis Hyperlipidemia Hypertension Lymphangioleiomyomatosis Reflux esophagitis Tuberous sclerosis (Unknown) Umbilical hernia without obstruction or gangrene (Unknown) Surgical History Surgical History History of section History of laparoscopy History of partial nephrectomy Left partial nephrectomy related to a gross secondary to tuberous sclerosis. History of right salpingo-oophorectomy With adhesiolysis and destruction of endometriosis. History of tonsillectomy Hx laparoscopic cholecystectomy Family History Family History Father Hypertension Mother Hypertension Sibling Family history of attention deficit hyperactivity disorder (ADHD) Son Tuberous sclerosis Social History Social History Social History: Surrogate decision maker: Pia Blue Code status: Full code. Smoking status: Never smoker Second hand tobacco smoke exposure: No Alcohol intake: never Substance use: never Substance use type: does not use Additional living arrangements comments: Resides in [place] with her 17-year-old twins. Additional occupation/education comments: She works from home, for the department of [employer] in [place]. Gender identity (if verbalized by the patient): Female Spiritual care concerns: No Comments At time of signature, I have reviewed and agree with nursing past medical, surgical, social and family history unless otherwise noted. Please see nursing chart for further information. There is no relevant family history pertinent to the presenting complaint Exam Narrative: GENERAL: Well-appearing, in no acute distress. CHEST: Speaks in full sentences. No respiratory distress. HEART: Regular rate and rhythm. Normal and equal peripheral pulses. EXTREMITIES: Right dorsal wrist with mild swelling and decreased ROM due to pain. Right hand has normal strength and sensation,normal finger cascade. No bruising or point tenderness. No open wounds, or obvious deformity; pulse palpable and equal bilaterally, skin warm, dry, pink. Capillary refill less than 3 seconds. SKIN: Warm, dry, no rash. NEURO: Alert and oriented x3. PSYCH: Normal mood and affect Course Course Emergency Course: Patient is aware of diagnosis, understands and agrees to treatment plan. Antici patory guidance given. Patient agrees to follow-up as directed and is aware of reasons to seek care at the emergency department. Portions of this record may have been created with voice recognition software Level of Care: Express Care Visit Vital Signs Vital signs: Vital Signs Temperature 97.6 F 04/07/25 15:31 Pulse Rate 81 04/07/25 15:31 Respiratory Rate 18 04/07/25 15:31 Blood Pressure 149/73 H 04/07/25 15:31 Pulse Oximetry 100 04/07/25 15:31 Oxygen Delivery Room Air 04/07/25 15:31 Temperature 97.6 F 04/07/25 15:31 Pulse Rate 81 04/07/25 15:31 Respiratory Rate 18 04/07/25 15:31 Blood Pressure 149/73 H 04/07/25 15:31 Pulse Oximetry 100 04/07/25 15:31 Oxygen Delivery Room Air 04/07/25 15:31 Reviewed MDM - Extremity Injury (Upper) MDM Narrative Medical decision making narrative: Discussed physical exam findings and xray. Pt declines LD wrap stating she has a splint from her surgery last year. Advised supportive measures and signs/symptoms to go to the ER. Pt is appropriate for outpt treatment and f/u. Differential Diagnosis Differential diagnosis: Likely sprain and strain of wrist and fracture of wrist Imaging Data Radiologist's impression: Patient: Jessa Alves : 1970 MR#: [id number] Age: 55 Acct:[id number] Loc: [facility] ADM Date: 04/07/25Attending Dr: EXAM: XR wrist RT min 3V DATE: 04/07/2025 15:45 HISTORY: fall, pain . COMPARISON: None available. FINDINGS: Osteopenia. No fracture or dislocation. No lytic or blastic lesion. Uncomplicated screw and plate fixation of the distal radius and ulna. Mild scattered degenerative changes. No erosion or periosteal change. Soft tissues within normal limits. IMPRESSION: No acute osseous finding in the right wrist. Discharge Plan Discharge Clinical Impression: Sprain and strain of wrist Patient Disposition: Home Condition: Stable Instructions: Wrist Sprain (ED) Additional Instructions: Rest and elevate the right hand. Activity is as tolerated Apply ice 15-20 minute intervals several times a day Keep it wrapped with LD or a soft wrist splint Motrin 800mg every 8 hours, alternate with Tylenol 1000mg every 8 hours as needed Follow up with your primary care provider as needed Go to the ER for worsening symptoms or concerns Patient Language: Korean Prescriptions: No Action sirolimus 1 mg tablet 1 mg PO BID Lagevrio (EUA) 200 mg capsule 800 mg PO Q12H 5 Days Qty: 40 0RF labetalol 200 mg Tablet 200 mg PO Q12H amitriptyline 25 mg Tablet 25 mg PO HS topiramate [Topamax] 50 mg Tablet 50 mg PO QAM Follow-up/Referrals: Hi,MD Gonzalez [Primary Care Provider] - Stand Alone Forms: Work/School Release IP Time of Disposition: 16:09
[2025-04-07 15:31] VITALS: BP 149/73; PULSE 81; RESP 18; TEMP 36.4; O2SAT 100
== END 2025-04-07 16:12 | disposition home or self-care (01) ==
PROVIDERS: Emergency Provider Nurse Practitioner Family; PCP Internal Medicine
DX: S63.501A Unspecified sprain of right wrist, initial encounter (principal); S66.911A Strain of unspecified muscle, fascia and tendon at wrist and hand level, right hand, initial encounter; W01.0XXA Fall on same level from slipping, tripping and stumbling without subsequent striking against object, initial encounter; Y99.0 Civilian activity done for income or pay; I12.9 Hypertensive chronic kidney disease with stage 1 through stage 4 chronic kidney disease, or unspecified chronic kidney disease; N18.30 Chronic kidney disease, stage 3 unspecified; E78.5 Hyperlipidemia, unspecified; N80.9 Endometriosis, unspecified; K21.00 Gastro-esophageal reflux disease with esophagitis, without bleeding; Z90.5 Acquired absence of kidney
CPT/HCPCS: 73110; 99213; G0463